=== PATIENT | male | born 1990 | race Caucasian/White ===

== ENCOUNTER 2017-08-28 02:08 | Emergency (ER) | payer MEDICAID, SELFPAY | END 2017-08-28 03:05 | disposition left against medical advice (07) | PROVIDERS: Emergency Provider Emergency Medicine; Family Provider Family Medicine; Visit Provider Emergency Medicine | DX: Z53.29 Procedure and treatment not carried out because of patient's decision for other reasons (principal); R07.9 Chest pain, unspecified | CPT/HCPCS: 80053; 82550; 82553; 84484; 85025; 93005; 93041; 99211; 99284 ==

== ENCOUNTER 2025-07-09 15:41 | Outpatient (CLI) | payer BC, SELFPAY ==
--- OUTSIDE RECORDS SUMMARY | 2025-02-17 05:00 | XMS_ITS ---
Author Organization [facility] Address [address] [place] [address] Phone [phone] Care Team Providers Care Aboriginal Liaison Officer Name Role Phone Sintia Palma Margarito [phone] Migration, Provider Unavailable Unavailable REASON FOR VISIT TelEnc Encounters Encounter Location Date Provider Diagnosis [address] [address] 02/17/2025 Provider Migration Plan Of Treatment No Information Progress Notes * JANEE DE SANTIAGOOB:1990 (35 yo M)Acc No.[id number]:02/17/2025 Patient: Tima SHAFFER YAJAIRA :1990 A ge:34 Y S ex:Male Address:[facility] [address], [address] [place], [place], [address] Subjective: * Chief Complaints: * T elEnc * * Date:
--- OUTSIDE RECORDS SUMMARY | 2025-02-24 12:30 | XMS_ITS ---
Author Organization [facility] Address [address] [place] [address] Phone [phone] Care Team Providers Care Monitor Tech Name Role Phone Sintia Palma [phone] Results Component Value Reference Range Notes DRUG SCREEN, URINE Reviewed date:02/24/2025 12:00:00 AM Interpretation: Performing Lab: Notes/Report: Amphetamines: negative Barbiturates: negative Benzodiazepines: negative Buprenoprhine positive Cannabinoids: positive Cocaine: negative Ethanol: negative Fentanyl negative MDMA negative Methadone negative Opiates: negative Oxycodone negative Vital Signs Temperature 97.9 degrees Fahrenheit 02/25/20 25 Blood pressure systolic 127 mm Hg 02/25/20 25 Blood pressure diastolic 71 mm Hg 025 Height 66.00 in 02/24/2025 Weight 207.00 lbs 02/24/2025 BMI 33.4 kg/m2 02/24/2025 Oximetry 99 % 02/24/2025 Height-cm 167.64 cm 02/24/2025 Weight-kg 93.89 kg 02/24/2025 Encounters Encounter Location Date Provider Diagnosis [facility] [address] [place] [address] 02/24/2025 Sintia Palma Other residential (current) drug therapy Z79.899 and Encounter for issue of repeat prescription Z76.0 Assessments Encounter Date Diagnosis (ICD Code) Assessment Notes Treatment Notes Treatment Clinical Notes Section Notes 02/24/2025 Other residential (current) drug therapy (ICD-10 - Z79.899) 02/24/2025 Encounter for issue of repeat prescription (ICD-10 - Z76.0) Plan Of Treatment No Information Progress Notes * JANEE DE SANTIAGOOB:1990 (35 yo M)Acc No.[id number]:02/24/2025 Progress Notes Patient: YAJAIRA JORDAN Provider: Hermelindo Palma APRN, PhD :1990 A ge:34 Y S ex:Male Date:02/24/2025 Address:[address] [place] [address], [address] [place], [id number] Objective: * Vitals: B P: 127/71 mm Hg, Temp: 97.9 F, Oxygen sat %: 99 %, Wt: 207.00 lbs, Wt-k.89 kg, Ht: 66.00 in, Ht-cm: 167.64 cm, BMI: 33.4 Index. Assessment: * Assessment: 1. E ncounter for issue of repeat prescription - Z76.0 2 . 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
--- OUTSIDE RECORDS SUMMARY | 2025-03-10 12:30 | XMS_ITS ---
Author Organization [facility] Address [address] [place] [address] Phone [phone] Care Team Providers Care Pension Fund Manager Name Role Phone Sintia Palma Unavailable [phone] Vital Signs Temperature 97.8 degrees Fahrenheit 03/10/20 25 Blood pressure systolic 145 mm Hg 03/10/20 25 Blood pressure diastolic 76 mm Hg 025 Height 66.00 in 03/10/2025 Weight 202.60 lbs 03/10/2025 BMI 32.7 kg/m2 03/10/2025 Oximetry 99 % 03/10/2025 Height-cm 167.64 cm 03/10/2025 Weight-kg 91.90 kg 03/10/2025 Encounters Encounter Location Date Provider Diagnosis [facility] [address] [place] [address] 03/10/2025 Sintia Palma Other jail (current) drug therapy Z79.899 ; Essential (primary) hypertension I10 and Encounter for issue of repeat prescription Z76.0 Assessments Encounter Date Diagnosis (ICD Code) Assessment Notes Treatment Notes Treatment Clinical Notes Section Notes 03/10/2025 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 (ICD-10 - Z79.899) 03/10/2025 Essential (primary) hypertension (ICD-10 - I10) 03/10/2025 Encounter for issue of repeat prescription (ICD-10 - Z76.0) Plan Of Treatment No Information Progress Notes * JANEE DE SANTIAGOOB:1990 (35 yo M)Acc No.[id number]:03/10/2025 Progress Notes Patient: YAJAIRA JORDAN Provider: Hermelindo Palma APRN PhD :1990 A ge:34 Y S ex:Male Date:03/10/2025 Address:[address] [place], [place] [address] , [address] [facility], [id number] Objective: * Vitals: B P: 145/76 mm Hg, Temp: 97.8 F, Oxygen sat %: 99 %, Wt: 202.60 lbs, Wt-k.90 kg, Ht: 66.00 in, Ht-cm: 167.64 cm, BMI: 32.7 Index. Assessment: * Assessment: 1. E ssential (primary) hypertension - I10 2 . E ncounter for issue of repeat prescription - Z76.0 3 . O ther jail (current) drug therapy - Z79.899? * Electronic signature of TRESA Solomon on 07/09/2025 at 03:45 PM EDT Sign off status: Pending * Provider: Hermelindo Palma APRN, PhD Date: 0 03/10/2025 Generated for Terri mcguire/Lisa/eTransmitting on: 1 03:45 PM EDT
--- OUTSIDE RECORDS SUMMARY | 2025-03-24 05:00 | XMS_ITS ---
Author Organization [facility] Address [address] [place] [address] Phone [phone] Care Team Providers Care Motion Study Technician Name Role Phone Sintia Palma Margarito [phone] Migration, Provider Unavailable Unavailable REASON FOR VISIT TelEnc Encounters Encounter Location Date Provider Diagnosis [address] [address] 03/24/2025 Provider Migration Plan Of Treatment No Information Progress Notes * JANEE DE SANTIAGOOB:1990 (35 yo M)Acc No.[id number]:03/24/2025 Patient: Tima SHAFFER YAJAIRA :1990 A ge:34 Y S ex:Male Address:[facility] [address], [address] [place], [address] Subjective: * Chief Complaints: * T elEnc * * Date:
--- OUTSIDE RECORDS SUMMARY | 2025-03-25 13:00 | XMS_ITS ---
Author Organization [facility] Address [address] [place] [address] Phone [phone] Care Team Providers Care Internal Controls Specialist Name Role Phone Sintia Palma [phone] Vital Signs Height 66.00 in 03/25/2025 Height-cm 167.64 cm 03/25/2025 Encounters Encounter Location Date Provider Diagnosis [facility] [address] [place] [address] 03/25/2025 Sintia Palma Encounter for issue of repeat prescription Z76.0 and Other [facility] (current) drug therapy Z79.899 Assessments Encounter Date Diagnosis (ICD Code) Assessment Notes Treatment Notes Treatment Clinical Notes Section Notes 03/25/2025 Encounter for issue of repeat prescription (ICD-10 - Z76.0) 03/25/2025 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 Assessment: * Assessment: 1. E ncounter for issue of repeat prescription - Z76.0 2 . 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
--- OUTSIDE RECORDS SUMMARY | 2025-04-10 05:00 | XMS_ITS ---
Author Organization [facility] Address [address] [place] [address] Phone [phone] Care Team Providers Care In House Counsel Name Role Phone PalmaSintia Unavailable [phone] Migration, Provider Unavailable Unavailable REASON FOR VISIT EMR-Mateusz Encounters Encounter Location Date Provider Diagnosis [address] [address] 04/10/2025 Provider Migration Plan Of Treatment No Information Progress Notes * JANEE DE SANTIAGOOB:1990 (35 yo M)Acc No.[id number]:04/10/2025 Patient: Tima SHAFFERYAJAIRA :1990 A ge:34 Y S ex:Male Address:[facility] [address], [address] , [place], [address] Subjective: * Chief Complaints: * E MR-Mateusz * * Date:
--- OUTSIDE RECORDS SUMMARY | 2025-04-11 05:00 | XMS_ITS ---
Author Organization [facility] Address [address] [place] [address] Phone [phone] Care Team Providers Care Tool Design Draftsperson Name Role Phone Sintia Palma Unavailable [phone] Migration, Provider Unavailable Unavailable REASON FOR VISIT EMR-Mateusz Medications Medication SIG (Take, Route, Frequency, Duration) Notes Start Date End Date Status prednisoLONE Acetate 1 % Suspension Ophthalmic 03/25/2025 Active Clobetasol Propionate 0.05% Cream External 03/25/2025 Active Polyethylene Glycol 3350 Powder Oral 03/25/2025 Active Triamcinolone Acetonide 0.1% Cream External 03/25/2025 Active Diclofenac Sodium 75 MG Tablet Delayed Release Oral 03/25/2025 Active Colace 100 MG Capsule Oral 03/25/2025 Active Ondansetron 4 MG Tablet Disintegrating Oral 03/25/2025 Active Latanoprost 0.005 % Solution Ophthalmic 03/25/2025 Active BUPRENORPHINE-NALOXONE 8-2 mg FILM, MEDICATED (EA) SUBLINGUAL *Reorder from Yesware for eRx and Interaction Alerts* 03/25/2025 Active Docusate Sodium 100 MG Capsule Oral 03/25/2025 Active MiraLax Powder Oral *Pick strength-form from [employer] for eRX* 03/25/2025 Active Atenolol 50 MG Tablet Oral 03/25/2025 Active Social History Social History Additional Details Category Social Info Options Details Migrated Social History Migrated Social History Alcohol Intake: None 10/14/2020,Tobacco Years: Current every day smoker 08/24/2020,Smoking Status: 20 09/26/2021 Encounters Encounter Location Date Provider Diagnosis [facility] [address] [place] [address] 04/11/2025 Provider Migration Plan Of Treatment No Information Progress Notes * JANEE DE SANTIAGOOB:1990 (35 yo M)Acc No.[id number]:04/11/2025 Patient: YAJAIRA JORDAN :1990 A ge:34 Y S ex:Male Address:[address] [place] [address], [address] [address] Subjective: * Chief Complaints: * E MR-Mateusz * Medical History: Problems: Acute right otitis media Benign essential hypertension Chronic hepatitis C Constipation Contact dermatitis Dermatophytosis Dysphagia Erectile dysfunction Excessive cerumen in ear canal Fatigue Gastroesophageal reflux disease Generalized anxiety disorder Health maintenance alteration Infection of skin and/or subcutaneous tissue Irregular heart beat Long-term drug therapy Low back pain Medical examination for suspected condition Muscle pain Muscle spasm of cervical muscle of neck Muscle tension pain Nausea Neck pain Numbness of hand Otalgia Pain in left foot Pain of ear Pain of left shoulder joint Pain of shoulder region Pruritic rash Renewal of prescription Screening for cardiovascular system disease Seasonal allergy Spasm Tinea pedis Unprotected sexual intercourse Venereal disease screening Viral screening * Surgical History: Arthroscopy ([id number]) * Family History: F ather: Hypertensive disorder . U nspecified Relation: Myocardial infarction . M other: Heart disease , Lung mass , Diabetes mellitus , Hypertensive disorder , Radial tunnel syndrome . Maternal Grandfather: Myocardial infarction , Diabetes mellitus . B rother: Hypertensive disorder . * Social History: M igrated Social History: M igrated Social History: Alcohol Intake: None 10/14/2020,Tobacco Years: Current every day smoker 08/24/2020,Smoking Status: 20 09/26/2021. * Medications: T akingTriamcinolone Acetonide 0.1% Cream External Atenolol 50 MG Tablet Oral Docusate Sodium 100 MG Capsule Oral Colace 100 MG Capsule Oral MiraLax Powder Oral , Notes to Pharmacist: *Pick strength-form from [employer] for eRX*BUPRENORPHINE-NALOXONE 8-2 mg FILM, MEDICATED (EA) SUBLINGUAL , Notes to Pharmacist: *Reorder from [employer] for eRx and Interaction Alerts*Clobetasol Propionate 0.05% Cream External Polyethylene Glycol 3350 Powder Oral Diclofenac Sodium 75 MG Tablet Delayed Release Oral Latanoprost 0.005 % Solution Ophthalmic Ondansetron 4 MG Tablet Disintegrating Oral prednisoLONE Acetate 1 % Suspension Ophthalmic Taking Triamcinolone Acetonide 0.1% Cream External Taking Atenolol 50 MG Tablet Oral Taking Docusate Sodium 100 MG Capsule Oral Taking Colace 100 MG Capsule Oral Taking MiraLax Powder Oral , Notes to Pharmacist: *Pick strength-form from [facility] for eRX*Taking BUPRENORPHINE-NALOXONE 8-2 mg FILM, MEDICATED (EA) SUBLINGUAL , Notes to Pharmacist: *Reorder from [facility] for eRx and Interaction Alerts*Taking Clobetasol Propionate 0.05% Cream External Taking Polyethylene Glycol 3350 Powder Oral Taking Diclofenac Sodium 75 MG Tablet Delayed Release Oral Taking Latanoprost 0.005 % Solution Ophthalmic Taking Ondansetron 4 MG Tablet Disintegrating Oral Taking prednisoLONE Acetate 1 % Suspension Ophthalmic * * Date:
--- OUTSIDE RECORDS SUMMARY | 2025-04-21 12:00 | XMS_ITS ---
Author Organization [facility] Address [address] [place] [address] Phone [phone] Care Team Providers Care Chief Steward/Stewardess Name Role Phone Sintia Palma Unavailable [phone] Encounters Encounter Location Date Provider Diagnosis [address] [address] 04/21/2025 Sintia Palma Plan Of Treatment No Information Progress Notes * JANEE DE SANTIAGOOB:1990 (35 yo M)Acc No.[id number]:04/21/2025 Progress Notes Patient: YAJAIRA JORDAN Provider: Hermelindo Palma APRN, PhD :1990 A ge:34 Y S ex:Male Date:04/21/2025 Address:[address], [address] , [place], [id number] * Electronic signature of TRESA Solomon on 07/09/2025 at 03:45 PM EDT Sign off status: Pending * Provider: Hermelindo Palma APRN, PhD Date: 0 04/21/2025 Generated for Printi ng/Faxing/eTransmitting on: 1 03:45 PM EDT
--- OUTSIDE RECORDS SUMMARY | 2025-06-16 11:30 | XMS_ITS ---
Author Organization [facility] Address [address] [place] [address] Phone [phone] Care Team Providers Care Drapery Hanger Name Role Phone Sintia Palma Unavailable [phone] REASON FOR VISIT Mat/Confirmation/Med refill Encounters Encounter Location Date Provider Diagnosis [address] [address] 06/16/2025 Sintia Palma Plan Of Treatment No Information Progress Notes * JANEE DE SANTIAGOOB:1990 (35 yo M)Acc No.[id number]:06/16/2025 Patient: YAJAIRA JORDAN Provider: Hermelindo Palma APRN, PhD :1990 A ge:35 Y S ex:Male Date:06/16/2025 Address:[facility] [address] , [address] , [place], [place] Subjective: * Chief Complaints: * M at/Confirmation/Med refill * Electronic signature of TRESA Solomon on 07/09/2025 at 03:46 PM EDT Sign off status: Pending * Provider: Hermelindo Palma APRN, PhD Date: Generated for Terri mcguire/Lisa/eTransmitting on: 03:46 PM EDT
--- OUTSIDE RECORDS SUMMARY | 2025-06-30 12:30 | XMS_ITS ---
Author Organization [facility] Address [address] [place] [address] Phone [phone] Care Team Providers Care Methods Examiner Name Role Phone Sintia Palma Unavailable [phone] REASON FOR VISIT mat/house/med refill Encounters Encounter Location Date Provider Diagnosis [address] [address] 06/30/2025 Sintia Palma Plan Of Treatment No Information Progress Notes * JANEE DE SANTIAGOOB:1990 (35 yo M)Acc No.[id number]:06/30/2025 Patient: YAJAIRA JORDAN Provider: Hermelindo Palma APRN, PhD :1990 A ge:35 Y S ex:Male Date:06/30/2025 Address:[facility] [address] , [address] , [place], [place] Subjective: * Chief Complaints: * M at/house/med refill * Electronic signature of TRESA Solomon on 07/09/2025 at 03:45 PM EDT Sign off status: Pending * Provider: Hermelindo Palma APRN, PhD Date: Generated for Terri mcguire/Lisa/eTgloriasmitting on: 03:45 PM EDT
--- NOTE | 2025-07-09 | US_ITS ---
FINAL REPORT TECHNIQUE: Ultrasound images of the abdomen were obtained. CLINICAL HISTORY: ABD PAIN COMPARISON: None FINDINGS: ABDOMINAL ULTRASOUND COMPLETE: The liver is normal in size and echogenicity without focal abnormality. Sludge is noted in the gallbladder. The common duct is normal. The right kidney measures 10.8 cm in length and is normal in echogenicity without hydronephrosis. The left kidney measures 9.5 cm in length and is normal in echogenicity without hydronephrosis. The spleen is unremarkable. The pancreas is obscured by overlying bowel gas. The visualized portions of the aorta and the IVC are normal. The vena cava is unremarkable. IMPRESSION: Sludge in the gallbladder. Reviewed, Interpreted and Dictated by Steven Gaxiola MD Transcribed by Kathy Sosa Authenticated and . [facility]
--- OUTSIDE RECORDS SUMMARY | 2025-07-09 15:44 | XMS_ITS | Patient Health Record ---
Author Organization [facility] Address [address] [place] [address] Phone [phone] Care Team Providers Care Dairy Management Specialist Name Role Phone Sintia Palma Unavailable [phone] LewisRosi che Unavailable [phone] Migration, Provider Unavailable Unavailable Results Component Value Reference Range Notes DRUG SCREEN, URINE Reviewed date:07/15/2024 12:00:00 AM Interpretation: Performing Lab: Notes/Report: Amphetamines: negative Barbiturates: negative Benzodiazepines: negative Buprenoprhine positive Cannabinoids: negative Cocaine: negative Ethanol: negative Fentanyl negative MDMA negative Methadone negative Opiates: negative Oxycodone negative DRUG SCREEN, URINE Reviewed date:08/12/2024 12:00:00 AM Interpretation: Performing Lab: Notes/Report: DRUG SCREEN, URINE Reviewed date:09/29/2024 12:00:00 AM Interpretation: Performing Lab: Notes/Report: Amphetamines: negative Barbiturates: negative Benzodiazepines: negative Buprenoprhine positive Cannabinoids: positive Cocaine: negative Ethanol: negative Fentanyl negative MDMA negative Methadone negative Opiates: negative Oxycodone negative DRUG SCREEN, URINE Reviewed date:09/29/2024 12:00:00 AM Interpretation: Performing Lab: Notes/Report: CMP, SERUM OR PLASMA Reviewed date:11/04/2024 12:00:00 AM Interpretation: Performing Lab: Notes/Report: DRUG SCREEN, URINE Reviewed date:11/04/2024 12:00:00 AM Interpretation: Performing Lab: Notes/Report: DRUG SCREEN, URINE Reviewed date:12/30/2024 12:00:00 AM Interpretation: Performing Lab: Notes/Report: Amphetamines: negative Barbiturates: negative Benzodiazepines: negative Buprenoprhine positive Cannabinoids: positive Cocaine: negative Ethanol: negative Fentanyl negative MDMA negative Methadone negative Opiates: negative Oxycodone negative DRUG SCREEN, URINE Reviewed date:01/13/2025 12:00:00 AM Interpretation: Performing Lab: Notes/Report: DRUG SCREEN, URINE Reviewed date:02/24/2025 12:00:00 AM Interpretation: Performing Lab: Notes/Report: Amphetamines: negative Barbiturates: negative Benzodiazepines: negative Buprenoprhine positive Cannabinoids: positive Cocaine: negative Ethanol: negative Fentanyl negative MDMA negative Methadone negative Opiates: negative Oxycodone negative Comp. Metabolic Panel (14) Reviewed date:05/18/2025 05:04:02 PM Interpretation: Performing Lab: Notes/Report: Urine toxicology Reviewed date:05/18/2025 05:01:55 PM Interpretation: Performing Lab: Notes/Report: Testosterone,Free and Total Reviewed date:05/20/2025 06:10:27 PM Interpretation: Performing Lab: Notes/Report: Urine toxicology (Not yet re viewed by provider) Interpretation: Performing Lab: Notes/Report: Reason For Referral No Information Medications Medication SIG (Take, Route, Frequency, Duration) Notes Start Date End Date Status Colace 100 MG Capsule Oral 03/25/2025 Active Ondansetron 4 MG Tablet Disintegrating Oral 03/25/2025 Active Latanoprost 0.005 % Solution Ophthalmic 03/25/2025 Active prednisoLONE Acetate 1 % Suspension Ophthalmic 03/25/2025 Active MiraLax Powder Oral *Pick strength-form from [employer] for eRX* 03/25/2025 Active BUPRENORPHINE-NALOXONE 8-2 mg FILM, MEDICATED (EA) SUBLINGUAL *Reorder from [employer] for eRx and Interaction Alerts* 03/25/2025 Active Clobetasol Propionate 0.05% Cream External 03/25/2025 Active Polyethylene Glycol 3350 Powder Oral 03/25/2025 Active Triamcinolone Acetonide 0.1% Cream External 03/25/2025 Active Docusate Sodium 100 MG Capsule Oral 03/25/2025 Active Atenolol 50 MG Tablet Oral 03/25/2025 Active Diclofenac Sodium 75 MG Tablet Delayed Release Oral 03/25/2025 Active Social History Social History Additional Details Category Social Info Options Details Migrated Social History Migrated Social History Alcohol Intake: None 10/14/2020,Tobacco Years: Current every day smoker 08/24/2020,Smoking Status: 20 09/26/2021 Problems Problem Type SNOMED Code ICD Code Onset Dates Problem Status W/U Status Risk Notes Problem Chronic hepatitis C (035081853) Chronic viral hepatitis C (B18.2) 08/07/20 21 Active confirmed Problem Tinea pedis (3940202) Tinea pedis (B35.3) 08/21/20 22 Active confirmed Problem Dermatophytosis (58576756) Dermatophytosis, unspecified (B35.9) 03/05/20 23 Active confirmed Problem Opioid dependence (40252664) Opioid dependence, uncomplicated (F11.20) 10/14/19 21 Active confirmed Problem Generalized anxiety disorder (86691488) Generalized anxiety disorder (F41.1) 06/20/20 22 Active confirmed Problem Male erectile disorder (373386948) Male erectile disorder (F52.21) 11/14/19 23 Active confirmed Problem Sleep disorder (59218793) Sleep disorder, unspecified (G47.9) 09/14/19 21 Active confirmed Problem Glaucoma (41918843) Unspecified glaucoma (H40.9) 11/12/19 24 Active confirmed Problem Impacted cerumen (92095022) Impacted cerumen, bilateral (H61.23) 07/18/20 22 Active confirmed Problem Otitis media (93960060) Otitis media, unspecified, right ear (H66.91) 09/29/19 25 Active confirmed Problem Otalgia of right ear (finding) (9585520872) Otalgia, right ear (H92.01) 02/13/20 22 Active confirmed Problem Pain of ear (finding) (836339767) Otalgia, unspecified ear (H92.09) 11/06/19 24 Active confirmed Problem Essential hypertension (90973016) Essential (primary) hypertension (I10) 03/10/20 25 Active confirmed Problem Acute upper respiratory infection (60305068) Acute upper respiratory infection, unspecified (J06.9) 12/17/19 25 Active confirmed Problem Seasonal allergic rhinitis (723672940) Other seasonal allergic rhinitis (J30.2) 01/01/20 24 Active confirmed Problem Gastro-esophageal reflux disease without esophagitis (240045225) Gastro-esophageal reflux disease without esophagitis (K21.9) 10/09/19 24 Active confirmed Problem Constipation (28133535) Constipation, unspecified (K59.00) 11/04/19 25 Active confirmed Problem Localized infection of skin AND/OR subcutaneous tissue (526925572) Local infection of the skin and subcutaneous tissue, unspecified (L08.9) 07/18/20 22 Active confirmed Problem Contact dermatitis (32640313) Unspecified contact dermatitis, unspecified cause (L25.9) 12/17/19 25 Active confirmed Problem Prurigo (20604577) Other prurigo (L28.2) 12/04/19 24 Active confirmed Problem Dermatitis (821451607) Dermatitis, unspecified (L30.9) 06/05/20 22 Active confirmed Problem Shoulder joint pain (840646252) Pain in left shoulder (M25.512) 11/20/19 24 Active confirmed Problem Shoulder joint pain (087041757) Pain in unspecified shoulder (M25.519) 10/29/19 24 Active confirmed Problem Cervicalgia (55378171) Cervicalgia (M54.2) 06/17/20 24 Active confirmed Problem Spasm (28529793) Other muscle sp asm (M62.838) 08/07/20 21 Active confirmed Problem Pain in right foot (695204294123185) Pain in right foot (M79.671) 02/28/20 22 Active confirmed Problem Pain in left foot (336680903970790) Pain in left foot (M79.672) 10/21/19 21 Active confirmed Problem Pain in limb (41807892) Pain in right toe(s) (M79.674) 02/26/20 24 Active confirmed Problem Pain in limb (28197593) Pain in left toe(s) (M79.675) 02/26/20 24 Active confirmed Problem Abnormal heart beat (821126144) Other abnormalities of heart beat (R00.8) 03/05/20 22 Active confirmed Problem Nausea (526327470) Nausea (R11.0) 0 25 Active confirmed Problem Nausea and vomiting (53530413) Nausea with vomiting, unspecified (R11.2) 04/28/20 22 Active confirmed Problem Dysphagia (07597299) Dysphagia, unspecified (R13.10) 03/27/20 23 Active confirmed Problem Anesthesia of skin (967871604) Anesthesia of skin (R20.0) 12/08/19 21 Active confirmed Problem Spasm (64800335) Cramp and spasm (R25.2) 11/04/19 25 Active confirmed Problem Disorder of musculoskeletal system (050961) Other symptoms and signs involving the musculoskeletal system (R29.898) 10/14/19 21 Active confirmed Problem Fatigue (91464292) Other fatigue (R53.83) 08/21/20 22 Active confirmed Problem History of suspected exposure to biological agent (72578297236513) Encounter for observation for suspected exposure to other biological agents ruled out (Z03.818) 09/26/19 22 Active confirmed Problem Sexually transmitted infectious disease (1109829) Encounter for screening for infections with a predominantly sexual mode of transmission (Z11.3) 10/09/19 24 Active confirmed Problem Infection screening (677033282) Encounter for screening for other infectious and parasitic diseases (Z11.8) 03/19/20 23 Active confirmed Problem Screening for cardiovascular system disease (655894254) Encounter for screening for cardiovascular disorders (Z13.6) 10/09/19 24 Active confirmed Problem Screening procedure (84033263) Encounter for screening, unspecified (Z13.9) 10/09/19 24 Active confirmed Problem High risk heterosexual behavior (812313420216391) High risk heterosexual behavior (Z72.51) 01/12/20 21 Active confirmed Problem Repeated prescription (330827109) Encounter for issue of repeat prescription (Z76.0) 03/25/20 25 Active confirmed Problem Health status (432588585) Other specified health status (Z78.9) 03/19/20 23 Active confirmed Problem Long-term current use of drug therapy (820080270) Other supervisor long goods (current) drug therapy (Z79.899) 03/25/20 25 Active confirmed Problem Drug-induced constipation (56681118) Drug induced constipation (K59.03) 12/17/19 21 Active confirmed Problem Muscle pain (63096221) Myalgia, unspecified site (M79.10) 04/01/20 22 Active confirmed Problem Encounter for screening for COVID-19 (Z11.52) 09/26/19 22 Active confirmed Problem Low back pain (830267478) Low back pain, unspecified (M54.50) 11/25/19 25 Active confirmed Vital Signs Temperature 97.8 degrees Fahrenheit 03/10/2025 Height-cm 167.64 cm 03/25/2025 Oximetry 99 % 03/10/2025 Blood pressure diastolic 76 mm Hg 03/10/2025 Weight-kg 91.90 kg 03/10/2025 Height 66.00 in 03/25/2025 Blood pressure systolic 145 mm Hg 03/10/2025 Weight 202.60 lbs 03/10/2025 BMI 32.7 kg/m2 03/10/2025 Encounters Encounter Location Date Provider Diagnosis [address] [address] 07/15/2024 Rosi Saucedo Encounter for issue of repeat prescription Z76.0 and Other supervisor long goods (current) drug therapy Z79.[address] [address] 07/29/2024 Rosi Saucedo Encounter for issue of repeat prescription Z76.0 ; Constipation, unspecified K59.00 and Other assisted (current) drug therapy Z79.[address] [address] 08/12/2024 Sintia Palma Encounter for issue of repeat prescription Z76.0 and Other supervisor long goods (current) drug therapy Z79.[address] [address] 08/26/2024 Sintia Palma Other supervisor long goods (current) drug therapy Z79.899 and Encounter for issue of repeat prescription Z76.[address] [address] 09/15/2024 Sintia Palma Encounter for issue of repeat prescription Z76.0 and Other supervisor long goods (current) drug therapy Z79.[address] [address] 09/29/2024 Sintia Palma Low back pain, unspecified M54.50 ; Otitis media, unspecified, right ear H66.91 ; Encounter for issue of repeat prescription Z76.0 and Other supervisor long goods (current) drug therapy Z79.[address] [address] 10/13/2024 Sintia Palma Nausea R11.0 ; Other assisted (current) drug therapy Z79.899 and Encounter for issue of repeat prescription Z76.0 [facility], [address] [address] 10/21/2024 Sintia Palma Other assisted (current) drug therapy Z79.899 [facility], [address] [address] 11/04/2024 Sintia Palma Other supervisor long goods (current) drug therapy Z79.899 ; Cramp and spasm R25.2 ; Constipation, unspecified K59.00 and Encounter for issue of repeat prescription Z76.[address] [address] 11/24/2024 Sintia Palma Encounter for issue of repeat prescription Z76.0 ; Unspecified contact dermatitis, unspecified cause L25.9 ; Low back pain, unspecified M54.50 ; Other supervisor long goods (current) drug therapy Z79.899 and Essential (primary) hypertension I10 [facility], [address] [address] 12/16/2024 Sintia Palma Encounter for issue of repeat prescription Z76.0 ; Other supervisor long goods (current) drug therapy Z79.899 ; Acute upper respiratory infection, unspecified J06.9 and Unspecified contact dermatitis, unspecified cause L25.9 [facility], [address] [address] 12/30/2024 Sintia Palma Encounter for issue of repeat prescription Z76.0 and Other supervisor long goods (current) drug therapy Z79.899 [facility], [address] [address] 01/13/2025 Sintia Palma Other assisted (current) drug therapy Z79.899 and Encounter for issue of repeat prescription Z76.[address] [address] 01/27/2025 Rosi Saucedo Other assisted (current) drug therapy Z79.899 and Encounter for issue of repeat prescription Z76.[address] [address] 02/10/2025 Sintia Palma Other supervisor long goods (current) drug therapy Z79.899 and Encounter for issue of repeat prescription Z76.0 [facility], [address] [address] 02/24/2025 Sintia Palma Other assisted (current) drug therapy Z79.899 and Encounter for issue of repeat prescription Z76.0 [facility], [address] [address] 03/10/2025 Sintia Palma Other assisted (current) drug therapy Z79.899 ; Essential (primary) hypertension I10 and Encounter for issue of repeat prescription Z76.0 [facility], [address] [address] 03/25/2025 Sintia Palma Encounter for issue of repeat prescription Z76.0 and Other supervisor long goods (current) drug therapy Z79.899 [facility], [address] [address] 04/21/2025 Sintia Palma [facility], [address] [address] 06/16/2025 Sintia Palma [facility], [address] [address] 06/30/2025 Sintia Palma [facility], [address] [address] 08/14/2024 Provider Migration [facility], [address] [address] 09/18/2024 Provider Migration [facility], [address] [address] 12/23/2024 Provider Migration [facility], [address] [address] 01/06/2025 Provider Migration [facility], [address] [address] 01/20/2025 Provider Migration [facility], [address] [address] 02/03/2025 Provider Migration [facility], [address] [address] 02/17/2025 Provider Migration [facility] [address] [place] [address] 03/24/2025 Provider [facility] [address] [place] [address] 04/10/2025 Provider Migration [facility] [address] [place] [address] 04/11/2025 Provider Migration Assessments Encounter Date Diagnosis (ICD Code) Assessment Notes Treatment Notes Treatment Clinical Notes Section Notes 07/15/2024 Encounter for issue of repeat prescription (ICD-10 - Z76.0) 07/15/2024 Other assisted (current) drug therapy (ICD-10 - Z79.899) 07/29/2024 Constipation, unspecified (ICD-10 - K59.00) 07/29/2024 Encounter for issue of repeat prescription (ICD-10 - Z76.0) 07/29/2024 Other supervisor long goods (current) drug therapy (ICD-10 - Z79.899) 08/12/2024 Encounter for issue of repeat prescription (ICD-10 - Z76.0) 08/12/2024 Other assisted (current) drug therapy (ICD-10 - Z79.899) 08/26/2024 Encounter for issue of repeat prescription (ICD-10 - Z76.0) 08/26/2024 Other assisted (current) drug therapy (ICD-10 - Z79.899) 09/15/2024 Encounter for issue of repeat prescription (ICD-10 - Z76.0) 09/15/2024 Other supervisor long goods (current) drug therapy (ICD-10 - Z79.899) 09/29/2024 Otitis media, unspecified, right ear (ICD-10 - H66.91) 09/29/2024 Encounter for issue of repeat prescription (ICD-10 - Z76.0) 09/29/2024 Other assisted (current) drug therapy (ICD-10 - Z79.899) 09/29/2024 Low back pain, unspecified (ICD-10 - M54.50) 10/13/2024 Nausea (ICD-10 - R11.0) 10/13/2024 Encounter for issue of repeat prescription (ICD-10 - Z76.0) 10/13/2024 Other supervisor long goods (current) drug therapy (ICD-10 - Z79.899) 10/21/2024 Other supervisor long goods (current) drug therapy (ICD-10 - Z79.899) 11/04/2024 Constipation, unspecified (ICD-10 - K59.00) 11/04/2024 Cramp and spasm (ICD-10 - R25.2) 11/04/2024 Encounter for issue of repeat prescription (ICD-10 - Z76.0) 11/04/2024 Other assisted (current) drug therapy (ICD-10 - Z79.899) 11/24/2024 Essential (primary) hypertension (ICD-10 - I10) 11/24/2024 Unspecified contact dermatitis, unspecified cause (ICD-10 - L25.9) 11/24/2024 Encounter for issue of repeat prescription (ICD-10 - Z76.0) 11/24/2024 Other supervisor long goods (current) drug therapy (ICD-10 - Z79.899) 11/24/2024 Low back pain, unspecified (ICD-10 - M54.50) 12/16/2024 Acute upper respiratory infection, unspecified (ICD-10 - J06.9) 12/16/2024 Unspecified contact dermatitis, unspecified cause (ICD-10 - L25.9) 12/16/2024 Encounter for issue of repeat prescription (ICD-10 - Z76.0) 12/16/2024 Other assisted (current) drug therapy (ICD-10 - Z79.899) 12/30/2024 Encounter for issue of repeat prescription (ICD-10 - Z76.0) 12/30/2024 Other supervisor long goods (current) drug therapy (ICD-10 - Z79.899) 01/13/2025 Encounter for issue of repeat prescription (ICD-10 - Z76.0) 01/13/2025 Other supervisor long goods (current) drug therapy (ICD-10 - Z79.899) 01/27/2025 Encounter for issue of repeat prescription (ICD-10 - Z76.0) 01/27/2025 Other supervisor long goods (current) drug therapy (ICD-10 - Z79.899) 02/10/2025 Encounter for issue of repeat prescription (ICD-10 - Z76.0) 02/10/2025 Other assisted (current) drug therapy (ICD-10 - Z79.899) 02/24/2025 Encounter for issue of repeat prescription (ICD-10 - Z76.0) 02/24/2025 Other assisted (current) drug therapy (ICD-10 - Z79.899) 03/10/2025 Essential (primary) hypertension (ICD-10 - I10) 03/10/2025 Encounter for issue of repeat prescription (ICD-10 - Z76.0) 03/10/2025 Other assisted (current) drug therapy (ICD-10 - Z79.899) 03/25/2025 Encounter for issue of repeat prescription (ICD-10 - Z76.0) 03/25/2025 Other assisted (current) drug therapy (ICD-10 - Z79.899) Plan Of Treatment Pending Test Test Name Order Date Urine toxicology 06/04/2025 Insurance Providers Payer Name Payer Address Payer Phone Subscriber Number Group Number Insured Name Patient Relationship to Insured Coverage Start Date Coverage End Date [employer] (Ppo) [address] [place] [phone] [id number] YAJAIRA DE SANTIAGO Self - patient is the insured Medical (General) History Surgical History Surgery Date(Month/Year) Arthroscopy ([id number])
--- OUTSIDE RECORDS SUMMARY | 2025-07-09 15:44 | XMS_ITS | Data Portability ---
Author Organization [place] - [facility], [facility], [facility], [facility] Address [address] [place] [phone] Assessment Encounter Date Assessment Date Assessment LastModified by Organization Details LastModified Time 05/05/2025 05/05/2025 Patient presented for medication refill. Patient tolerating medication well at current dose without adverse effects. Refilled as below. Discussed plan with patient, who expressed understanding . Follow up as noted below. [email or web address] Not available 05/05/2025 17:33:27 05/19/2025 05/19/2025 Patient presented for medication refill. Patient tolerating medication well at current dose without adverse effects. Refilled as below. Discussed plan with patient, who expressed understanding . Follow up as noted below. Not available 05/19/2025 16:54:49 06/02/2025 06/02/2025 Patient presented for medication refill. Patient tolerating medication well at current dose without adverse effects. Refilled as below. Discussed plan with patient, who expressed understanding . Follow up as noted below. [email or web address] Not available 06/02/2025 18:02:36 06/30/2025 06/30/2025 Patient presented for medication refill. Patient tolerating medication well at current dose without adverse effects. Refilled as below. Discussed plan with patient, who expressed understanding . Follow up as noted below. Not available 06/30/2025 17:17:58 Plan of Treatment Reminders Order Date Submit Date Provider Last Modified By Organization Details Last Modified Time Details Appointments ESTABLISH ED PATIENT 30 2024 04:30P Nelda PALMA NP Not available Not available Not available Lab drug screen, urine 2024 025 [facility], [facility], [address] [place] [address], [phone], 06/30/2025 17:24:00 drug screen, urine [email or web address] [place] [address], [facility], [address] [place] [address], [phone], 06/02/2025 18:12:02 drug screen, urine 2024 025 [email or web address] [facility], [address] [place] [address], [id number], 06/02/2025 18:14:10 testoster one, total, serum 2024 025 [email or web address], [address] [place] [address], [id number], 05/19/2025 17:05:54 drug screen, urine 2024 025 [email or web address] [facility], [facility], [address] [place] [address], [phone], 05/19/2025 17:05:53 drug screen, urine [address], [facility], [address] [place] [address], [phone], 05/19/2025 17:05:53 CBC w/ auto diff 2024 025 [email or web address] [facility], [address] [place] [address], [id number], 05/05/2025 17:50:48 CMP, serum or plasma 2024 025 [email or web address] [facility], [address] [place] [address], [id number], 05/05/2025 17:50:48 lipase, serum or plasma 2024 025 [email or web address] [facility], [address] [place] [address], [id number], 05/05/2025 17:50:48 amylase, serum or plasma 2024 [email or web address] [facility], [address] [place] [address], [id number], 05/05/2025 17:50:48 testoster one, total, serum 2024 [email or web address] [id number] [facility], [address] [place] [address], [id number], 05/05/2025 17:50:48 drug screen, urine [address], [address] [place] [address], [phone], 05/05/2025 17:50:48 Referral None recorded. Procedures None recorded. Surgeries None recorded. Imaging US, abdomen, complete 2024 [facility] (Scheduling), [address], [place], [address], 06/09/2025 04:39:55 US, abdomen, complete 2024 [facility] (Scheduling), [address], [place], [address], 05/26/2025 04:12:44 Medication Orders ondansetr on 8 mg disintegr ating tablet 2024 [facility], [address] [place], [address], 06/30/2025 17:24:08 diclofena c sodium 75 mg tablet,de layed release 2024 [facility], [address] [place], [address], 06/30/2025 17:24:13 buprenorp astrid 8 mg-naloxo ne 2 mg sublingua l film 2024 025 [facility], [address], [id number], 06/30/2025 17:24:09 buprenorp astrid 8 mg-naloxo ne 2 mg sublingua l film 2024 025 [facility], [address], [address], 06/23/2025 05:01:45 buprenorp astrid 8 mg-naloxo ne 2 mg sublingua l film 2024 025 [facility], [address], [address], 06/23/2025 05:01:45 Colace 100 mg capsule 2024 025 [facility], [address], [address], 05/05/2025 17:51:40 buprenorp astrid 8 mg-naloxo ne 2 mg sublingua l film 2024 025 [facility], [address], [address], 06/23/2025 05:01:45 bupropion HCl XL 150 mg 24 hr tablet, extended release 2024 025 [facility], [address], [id number], 05/05/2025 17:51:40 Patient TargetsNo targets recorded. Patient Instructions Encounter Date Encounter Id Patient Instructions Last Modified By Organization Details Last Modified Time 05/05/2025 [id number] Discussed the benefits and risks of treatment with buprenorphine and alternatives to treatment, including Vivitrol. Discussed the risks or respiratory depression and associated with taking buprenorphine with alcohol, opioids, stimulants, or hypnotic sedatives, in particular benzodiazepines. Discussed the potential for precipitated withdrawal if used with an opioid. Patient signed contract and understands that the office will be collecting random drug screens and will be conducting pill counts. Consent on file. No new medical records. Attended 4 AA meetings over the past week. He has sponsor, Edgar Avila and talks or text daily and meets twice over the past week. Steps completed. 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 Counselor - Regi Wood, Appointment 06/07/2025 Plan: bup 16 mg/naloxone 4 mg SL daily, film. Continue counseling. Encouraged to work with sponsor and attend AA meetings in person or telehealth. Client committed to not using any Adderall in the future. Client reported that he only uses THC, has decreased amount Client has received written literature on bup/naloxone. at previous visit. [email or web address] Not available 05/05/2025 17:49:47 05/19/2025 [id number] Discussed the benefits and risks of treatment with buprenorphine and alternatives to treatment, including Vivitrol. Discussed the risks or respiratory depression and associated with taking buprenorphine with alcohol, opioids, stimulants, or hypnotic sedatives, in particular benzodiazepines. Discussed the potential for precipitated withdrawal if used with an opioid. Patient signed contract and understands that the office will be collecting random drug screens and will be conducting pill counts. Consent on file. No new medical records. Attended 4 AA meetings over the past week. He has sponsor, Edgar Avila and talks or text daily and meets twice over the past week. Steps completed. 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 Counselor - Regi Wood, Appointment 06/07/2025 Plan: bup 16 mg/naloxone 4 mg SL daily, film. Continue counseling. Encouraged to work with sponsor and attend AA meetings in person or telehealth. Client committed to not using any Adderall in the future. Client reported that he only uses THC, has decreased amount Client has received written literature on bup/naloxone. at previous visit. Not available 05/19/2025 16:48:12 06/02/2025 [id number] Discussed the benefits and risks of treatment with buprenorphine and alternatives to treatment, including Vivitrol. Discussed the risks or respiratory depression and associated with taking buprenorphine with alcohol, opioids, stimulants, or hypnotic sedatives, in particular benzodiazepines. Discussed the potential for precipitated withdrawal if used with an opioid. Patient signed contract and understands that the office will be collecting random drug screens and will be conducting pill counts. Consent on file. No new medical records. Attended 4 AA meetings over the past week. He has sponsor, Edgar Avila and talks or text daily and meets twice over the past 2 weeks. Steps completed. 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 Counselor - Regi Wood, Appointment 06/07/2025 Plan: bup 16 mg/naloxone 4 mg SL daily, film. Continue counseling. Encouraged to work with sponsor and attend AA meetings in person or telehealth. Client committed to not using any Adderall in the future. Client reported that he used THC with a friend. The THC was laced with amphetamine. Client did not know this and was told it was laced with MDMA after the patient's heart started to race. Typically client uses THC to control eye pressure. His opthamologist is aware of this use. Client has received written literature on bup/naloxone. at previous visit. Not available 06/02/2025 18:10:14 06/30/2025 [id number] Discussed the benefits and risks of treatment with buprenorphine and alternatives to treatment, including Vivitrol. Discussed the risks or respiratory depression and associated with taking buprenorphine with alcohol, opioids, stimulants, or hypnotic sedatives, in particular benzodiazepines. Discussed the potential for precipitated withdrawal if used with an opioid. Patient signed contract and understands that the office will be collecting random drug screens and will be conducting pill counts. Consent on file. No new medical records. Plan: bup 16 mg/naloxone 4 mg SL daily, film. Continue counseling. Encouraged to work with sponsor and attend AA meetings in person or telehealth. Client committed to not using any Adderall in the future. Client reported that he is using THC for glaucoma. He is planning to get a THC card. Typically client uses THC to control eye pressure. His opthamologist is aware of this use. Client has received written literature on bup/naloxone. at previous visit. UDS urine positive for BUP/NAL, positive for THC discussed this with patient for the THC helps with his eyesight. Demonstrated neck exercises. Not available 06/30/2025 17:23:12 Reason for Referral None Reported. Results Created Date Observation Date Name Description Value Unit Range Abnormal Flag Note LastModifiedBy Organization Detail LastModifiedTime 04/12/20 25 04/12/2025 drug scree n, urine Amphetamines : positi ve Not Available [facility], [address], [address], 04/12/2025 16:50:45 04/12/20 25 04/12/2025 drug scree n, urine Cannabinoids : positi ve Not Available [facility], [address], [address], 04/12/2025 16:50:45 04/12/20 25 04/12/2025 drug scree n, urine Cocaine: negati ve Not Available [facility], [address], [address], 04/12/2025 16:50:45 04/12/20 25 04/12/2025 drug scree n, urine Opiates: negati ve Not Available [facility], [address], [address], 04/12/2025 16:50:45 04/12/20 25 04/12/2025 drug scree n, urine Oxycodone negati ve Not Available [facility], [address], [address], 04/12/2025 16:50:45 04/12/20 25 04/12/2025 drug scree n, urine Barbiturates : negati ve Not Available [facility], [address], [address], 04/12/2025 16:50:45 04/12/20 25 04/12/2025 drug scree n, urine Benzodiazepi edith: negati ve Not Available [facility], [address], [address], 04/12/2025 16:50:45 04/12/20 25 04/12/2025 drug scree n, urine Ethanol: negati ve Not Available [facility], [address], [address], 04/12/2025 16:50:45 04/12/20 25 04/12/2025 drug scree n, urine Fentanyl negati ve Not Available [facility], [address], [address], 04/12/2025 16:50:45 04/12/20 25 04/12/2025 drug scree n, urine Methadone negati ve Not Available [facility], [address], [address], 04/12/2025 16:50:45 04/12/20 25 04/12/2025 drug scree n, urine Buprenoprhin e positi ve Not Available [facility], [address], [address], 04/12/2025 16:50:45 04/12/20 25 04/12/2025 drug scree n, urine MDMA negati ve Not Available [facility], [address], [address], 04/12/2025 16:50:45 05/05/20 25 05/05/2025 drug scree n, urine Amphetamines : negati ve Not Available [facility], [address], [address], 05/05/2025 16:01:23 05/05/20 25 05/05/2025 drug scree n, urine Cannabinoids : positi ve Not Available [facility], [address], [address], 05/05/2025 16:01:23 05/05/20 25 05/05/2025 drug scree n, urine Cocaine: negati ve Not Available [facility], [address], [address], 05/05/2025 16:01:23 05/05/20 25 05/05/2025 drug scree n, urine Opiates: negati ve Not Available [facility], [address], [address], 05/05/2025 16:01:23 05/05/20 25 05/05/2025 drug scree n, urine Oxycodone negati ve Not Available [facility], [address], [address], 05/05/2025 16:01:23 05/05/20 25 05/05/2025 drug scree n, urine Barbiturates : negati ve Not Available [facility], [address], [address], 05/05/2025 16:01:23 05/05/20 25 05/05/2025 drug scree n, urine Benzodiazepi edith: negati ve Not Available [facility], [address], [address], 05/05/2025 16:01:23 05/05/20 25 05/05/2025 drug scree n, urine Ethanol: negati ve Not Available [facility], [address], [address], 05/05/2025 16:01:23 05/05/20 25 05/05/2025 drug scree n, urine Fentanyl negati ve Not Available [facility], [address], [address], 05/05/2025 16:01:23 05/05/20 25 05/05/2025 drug scree n, urine Methadone negati ve Not Available [facility], [address], [address], 05/05/2025 16:01:23 05/05/20 25 05/05/2025 drug scree n, urine Buprenoprhin e positi ve Not Available [facility], [address], [address], 05/05/2025 16:01:23 05/05/20 25 05/05/2025 drug scree n, urine MDMA negati ve Not Available [facility], [address], [address], 05/05/2025 16:01:23 05/19/20 25 05/19/2025 drug scree n, urine Amphetamines : negati ve Not Available [facility], [address], [address], 05/19/2025 16:49:48 05/19/20 25 05/19/2025 drug scree n, urine Cannabinoids : positi ve Not Available [facility], [address], [address], 05/19/2025 16:49:48 05/19/20 25 05/19/2025 drug scree n, urine Cocaine: negati ve Not Available [facility], [address], [address], 05/19/2025 16:49:48 05/19/20 25 05/19/2025 drug scree n, urine Opiates: negati ve Not Available [facility], [address], [address], 05/19/2025 16:49:48 05/19/20 25 05/19/2025 drug scree n, urine Oxycodone negati ve Not Available [facility], [address], [address], 05/19/2025 16:49:48 05/19/20 25 05/19/2025 drug scree n, urine Barbiturates : negati ve Not Available [facility], [address], [address], 05/19/2025 16:49:48 05/19/2005/19/2025 drug scree n, urine Benzodiazepi edith: negati ve Not Available [facility], [address], [address], 05/19/2025 16:49:48 05/19/2005/19/2025 drug scree n, urine Ethanol: negati ve Not Available [facility], [address], [address], 05/19/2025 16:49:48 05/19/2005/19/2025 drug scree n, urine Fentanyl negati ve Not Available [facility], [address], [address], 05/19/2025 16:49:48 05/19/2005/19/2025 drug scree n, urine Methadone negati ve Not Available [facility], [address], [address], 05/19/2025 16:49:48 05/19/2005/19/2025 drug scree n, urine Buprenoprhin e positi ve Not Available [facility], [address], [address], 05/19/2025 16:49:48 05/19/20 25 05/19/2025 drug scree n, urine MDMA negati ve Not Available [facility], [address], [address], 05/19/2025 16:49:48 06/02/20 25 06/02/2025 drug scree n, urine Amphetamines : positi ve Not Available [facility], [address], [address], 06/02/2025 17:11:14 06/02/20 25 06/02/2025 drug scree n, urine Cannabinoids : positi ve Not Available [facility], [address], [address], 06/02/2025 17:11:14 06/02/20 25 06/02/2025 drug scree n, urine Cocaine: negati ve Not Available [facility], [address], [address], 06/02/2025 17:11:14 06/02/20 25 06/02/2025 drug scree n, urine Opiates: negati ve Not Available [facility], [address], [address], 06/02/2025 17:11:14 06/02/20 25 06/02/2025 drug scree n, urine Oxycodone negati ve Not Available [facility], [address], [address], 06/02/2025 17:11:14 06/02/20 25 06/02/2025 drug scree n, urine Barbiturates : negati ve Not Available [facility], [address], [address], 06/02/2025 17:11:14 06/02/20 25 06/02/2025 drug scree n, urine Benzodiazepi edith: negati ve Not Available [facility], [address], [address], 06/02/2025 17:11:14 06/02/20 25 06/02/2025 drug scree n, urine Ethanol: negati ve Not Available [facility], [address], [address], 06/02/2025 17:11:14 06/02/20 25 06/02/2025 drug scree n, urine Fentanyl negati ve Not Available [facility], [address], [address], 06/02/2025 17:11:14 06/02/20 25 06/02/2025 drug scree n, urine Methadone negati ve Not Available [facility], [address], [address], 06/02/2025 17:11:14 06/02/20 25 06/02/2025 drug scree n, urine Buprenoprhin e positi ve Not Available [facility], [address], [address], 06/02/2025 17:11:14 06/02/20 25 06/02/2025 drug scree n, urine MDMA negati ve Not Available [facility], [address], [address], 06/02/2025 17:11:14 06/30/20 25 06/30/2025 drug scree n, urine Amphetamines : negati ve Not Available [facility], [address], [address], 06/30/2025 17:06:43 06/30/20 25 06/30/2025 drug scree n, urine Cannabinoids : positi ve Not Available [facility], [address], [address], 06/30/2025 17:06:43 06/30/2006/30/2025 drug scree n, urine Cocaine: negati ve Not Available [facility], [address], [address], 06/30/2025 17:06:43 06/30/2006/30/2025 drug scree n, urine Opiates: negati ve Not Available [facility], [address], [address], 06/30/2025 17:06:43 06/30/2006/30/2025 drug scree n, urine Oxycodone negati ve Not Available [facility], [address], [address], 06/30/2025 17:06:43 06/30/2006/30/2025 drug scree n, urine Barbiturates : negati ve Not Available [facility], [address], [address], 06/30/2025 17:06:43 06/30/2006/30/2025 drug scree n, urine Benzodiazepi edith: negati ve Not Available [facility], [address], [address], 06/30/2025 17:06:43 06/30/2006/30/2025 drug scree n, urine Ethanol: negati ve Not Available [facility], [address], [address], 06/30/2025 17:06:43 06/30/2006/30/2025 drug scree n, urine Fentanyl negati ve Not Available [facility], [address], [address], 06/30/2025 17:06:43 06/30/2006/30/2025 drug scree n, urine Methadone negati ve Not Available [facility], [facility] [address] [place], [address], 06/30/2025 17:06:43 06/30/20 25 06/30/2025 drug scree n, urine Buprenoprhin e positi ve Not Available [facility], [facility] [address] [place], [address], 06/30/2025 17:06:43 06/30/20 25 06/30/2025 drug scree n, urine MDMA negati ve Not Available [facility], [facility] [address] [place], [address], 06/30/2025 17:06:43 Result Notes None recorded. Problems Name Problem SNOMED Code Status Onset Date Resolution Date Notes Provider Name and Address Organization Details Recorded Time Long-term drug therapy Active 2019 Sintia Palma NP, A [address] [facility], [place], [address], [facility] - [facility], [facility] 0 12:26:02 Health maintenance alteration 86365655 Active 2019 Sintia Palma NP, A [address] [facility], [place], [address], [facility] - [facility], [facility] 0 12:26:07 Medical examination for suspected condition Active 2019 Sintia Palma NP, A [address] [facility], [place], [address], [facility] - [facility], [facility] 0 14:29:00 Generalized anxiety disorder 58288098 Active 2020 Sintia Palma NP, A [address] [facility], [place], [address], [facility] - [facility], [facility] 1 13:57:46 Muscle spasm of cervical muscle of neck 961026994358 Active 2020 Sintia Palma NP, A [address] [facility], [place], [address], [facility], [facility] 1 15:02:49 Pain of shoulder region 59412393 Active 2020 Sintia Palma NP, A [address], [place], [address], [facility], [facility] 1 17:04:29 Pain in left foot [id number] 07 Active 2020 Sintia Palma NP, A [address], [place], [address], [facility], [facility] 1 16:16:30 Numbness of hand 729282665 Active 2020 Sintia Palma NP, A [address], [place], [address], [facility], [facility] 1 14:52:03 Unprotected sexual intercourse 3023966 Active 2020 Sintia Palma NP, A [address], [place], [address], [facility], [facility] 1 14:58:50 Chronic hepatitis C 407887153 Active 2020 Sintia Palma NP, A [address], [place], [address], [facility], [facility] 1 15:00:42 Neck pain 82658106 Active 2020 Sintia Palma NP, A [address], [place], [address], [facility], [facility] 5 17:33:27 Contact dermatitis 43834636 Active 2020 Sintia Palma NP, A [address], [place], [address], [facility], [facility] 1 16:27:11 Viral screening Active 2020 Sintia Palma NP, A [address], [place], [address], [facility], [facility] 1 16:29:05 Muscle tension pain 308928340 Active 2020 Sintia Palma NP, A [address] [facility], [place], [address], [facility] - [facility], [facility] 1 16:31:15 Irregular heart beat 736474850 Active 2020 Sintia Palma NP, A [address] [facility], [place], [address], [facility] - [facility], [facility] 1 16:06:26 Low back pain 565694069 Active 2021 Sintia Palma NP, A [address] [facility], [place], [address], [facility] - [facility], [facility] 2 15:11:06 Otalgia 65731779 Active 2021 Sintia Palma NP, A [address] [facility], [place], [address], [facility] - [facility], [facility] 2 18:03:25 Muscle pain 28390196 Active 2021 Sintia Palma NP, A [address] [facility], [place], [address], [facility] - [facility], [facility] 2 17:45:14 Acute right otitis media [id number] Active 2021 Sintia Palma NP, A [address] [facility], [place], [address], [facility] - [facility], [facility] 2 18:07:58 Benign essential hypertensio n 0317376 Active 2021 Sintia Palma NP, A [address] [facility], [place], [address], [facility] - [facility], [facility] 2 17:47:25 Excessive cerumen in ear canal 418800602 Active 2021 Sintia Palma NP, A [address] [facility], [place], [address], [facility] - [facility], [facility] 2 17:12:47 Infection of skin and/or subcutaneou s tissue 26008557 Active 2021 Sintia Palma NP, A [address], [place], [address], [facility], [facility] 2 17:13:53 Fatigue 36841564 Active 2021 Sintia Palma NP, A [address], [place], [address], [facility], [facility] 2 17:18:07 Pruritic rash 52181433 Active 2022 Sintia Palma NP, A [address], [place], [address], [facility], [facility] 3 16:33:04 Tinea pedis 7028120 Active 2022 Sintia Palma NP, A [address], [place], [address], [facility], [facility] 3 16:35:38 Erectile dysfunction 512505595 Active 2022 Sintia Palma NP, A [address], [place], [address], [facility], [facility] 3 16:59:55 Dermatophyt osis 86524816 Active 2022 Sintia Palma NP, A [address], [place], [address], [facility], [facility] 3 16:48:08 Dysphagia 92667394 Active 2022 Sintia Palma NP, A [address], [place], [address], [facility], [facility] 3 15:11:54 Nausea 483457917 Active 2023 Sintia Palma NP, A [address], [place], [address], [facility], [facility] 5 18:03:43 Venereal disease screening Active 2023 Sintia Palma NP, A [address], [place], [address], [facility], [facility] 4 17:57:37 Screening for cardiovascu lar system disease Active 2023 Sintia Palma NP, A [address], [place], [address], [facility], [facility] 4 17:57:41 Gastroesoph ageal reflux disease 542447696 Active 2023 Sintia Palma NP, A [address], [place], [address], [facility], [facility] 4 17:57:46 Renewal of prescriptio n Active 2023 Sintia Palma NP, A [address], [place], [address], [facility], [facility] 4 17:57:54 Pain of left shoulder joint [id number] 9109 Active 2023 Sintia Palma NP, A [address], [place], [address], [facility], [facility] 4 17:27:26 Pain of ear 136789137 Active 2023 Sintia Palma NP, A [address], [place], [address], [facility], [facility] 4 16:16:58 Seasonal allergy 966650789 Active 2023 Sintia Palma NP, A [address], [place], [address], [facility], [facility] 4 17:16:09 Constipatio n 27682285 Active 2023 Sintia Palma NP, A [address], [place], [address], [facility], [facility] 4 16:46:28 Spasm 19388584 Active 2024 Sintia Palma NP, A [address], [place], [address], [facility], [facility] 5 16:10:06 Lack of energy 128607356 Active 2024 Sintia Palma NP, A [address], [place], [address], [facility], [facility] 5 17:39:20 Depressive disorder 29859088 Active 2024 Sintia Palma NP, A [address], [place], [address], [facility], [facility] 5 17:41:07 Acute abdominal pain 614877630 Active 2024 Sintia Palma NP, A [address] [facility], [place], [address], [facility], [facility] 5 17:30:29 Problem Notes None recorded. Procedures Surgical History Date Name Laterality Status Provider Name and Address Organization Details Recorded Time arthroscopy completed Sintia Palma NP, A [address] [facility], [place], [address], [facility], [facility] 08/24/2020 12:16:21 Imaging Results None recorded. Procedure Notes None recorded. Medical Equipment None Reported. Allergies No known drug allergies Medications Name Sig Start Date Stop Date Status Note LastModified by Organization Details LastModified Time amoxicillin 500 mg capsule 09/21 completed Not Available Not Available Not Available latanoprost 0.005 % eye drops INSTILL 1 DROP INTO AFFECTED EYE ONCE DAILY active Not Available Not Available No t Available terbinafine HCl 1 % topical cream APPLY TO THE AFFECTED AREA AND SURROUNDI NG AREAS OF SKIN TOPICALLY ONCE DAILY 02/02 completed Not Available Not Available Not Available doxepin 50 mg capsule TAKE 1 CAPSULE BY MOUTH EVERY DAY AT BEDTIME 01/11 completed Not Available Not Available Not Available naproxen 375 mg tablet Take 1 tablet twice a day by oral route for 30 days. 02/02 completed Not Available Not Available Not Available clindamycin HCl 300 mg capsule TAKE 1 CAPSULE BY MOUTH THREE TIMES A DAY FOR 10 DAYS 08/29 completed Not Available Not Available Not Available azithromyci n 250 mg tablet TAKE 2 TABLETS (500 MG) BY ORAL ROUTE ONCE DAILY FOR 1 DAY THEN 1 TABLET (250 MG) BY ORAL ROUTE ONCE DAILY FOR 4 DAYS 12/03 completed Not Available Not Available Not Available ibuprofen 800 mg tablet TAKE 1 TABLET BY MOUTH EVERY 6 TO 8 HOURS NEEDED FOR PAIN 10/16 completed Not Available Not Available Not Available tizanidine 4 mg tablet TAKE 1 TABLET BY MOUTH EVERY 8 HOURS FOR 14 DAYS NEEDED 03/10 completed Not Available Not Available Not Available fluconazole 150 mg tablet TAKE 1 TABLET BY MOUTH EVERY DAY 08/07 completed Not Available Not Available Not Available benzonatate 200 mg capsule Take 1 capsule 3 times a day by oral route as directed for 7 days. 03/10 completed Not Available Not Available Not Available hydrocodone 5 mg-acetamin ophen 325 mg tablet TAKE 1 TABLET BY MOUTH EVERY 6 HOURS NEEDED FOR PAIN active Not Available Not Available No t Available naltrexone 50 mg tablet 05/31 completed Not Available Not Available Not Available famotidine 40 mg tablet TAKE 1 TABLET BY MOUTH EVERY DAY 02/02 completed Not Available Not Available Not Available atenolol 25 mg tablet TAKE 1 TABLET BY MOUTH EVERY DAY 06/17 completed Not Available Not Available Not Available clobetasol 0.05 % topical cream APPLY A THIN LAYER TO THE AFFECTED AREA(S) BY TOPICAL ROUTE 2 TIMES PER DAY 04/21 completed Not Available Not Available Not Available permethrin 5 % topical cream APPLY TOPICALLY SEE ADMIN INSTRUCTI ONS FOR 7 DAYS. APPLY REPEAT IN 1 WEEK IF NEEDED. 08/29 completed Not Available Not Available Not Available omeprazole 40 mg capsule,del ayed release TAKE 1 CAPSULE BY MOUTH EVERY DAY IN THE MORNING 05/31 completed Not Available Not Available Not Available triamcinolo ne acetonide 0.1 % topical cream Apply 1 applicati on twice a day by topical route as directed for 10 days. 2024 active Not Available Not Available Not Avai lable amoxicillin 500 mg tablet TAKE 1 TABLET BY MOUTH EVERY 8 HOURS UNTIL ALL TAKEN 06/20 completed Not Available Not Available Not Available ondansetron 8 mg disintegrat ing tablet DISSOLVE 1 TABLET IN MOUTH THREE TIMES DAILY FOR 6 DAYS active Not Available Not Available No t Available baclofen 20 mg tablet TAKE 1 TABLET BY MOUTH THREE TIMES A DAY 09/21 completed Not Available Not Available Not Available ketorolac 10 mg tablet 09/21 completed Not Available Not Available Not Available citalopram 20 mg tablet TAKE 1 TABLET BY MOUTH EVERY DAY 06/20 completed Not Available Not Available Not Available prednisolon e acetate 1 % eye drops,suspe nsion SHAKE LIQUID AND INSTILL 1 DROP IN RIGHT EYE FOUR TIMES DAILY active Not Available Not Available No t Available magnesium oxide 400 mg (241.3 mg magnesium) tablet Take 1 tablet every day by oral route in the morning for 30 days. 03/10 completed Not Available Not Available Not Available Ear Wax Removal Drops 6.5 % INSTILL 5 DROPS INTO AFFECTED EARS 2 TIMES PER DAY NEEDED. 08/21 completed Not Available Not Available Not Available baclofen 10 mg tablet TAKE 1 TABLET BY MOUTH THREE TIMES DAILY NEEDED 02/02 completed Not Available Not Available Not Available cephalexin 500 mg capsule Take 1 capsule every 8 hours by oral route as directed for 10 days. 07/03 completed Not Available Not Available Not Available doxepin 100 mg capsule TAKE 1 CAPSULE BY MOUTH EVERY NIGHT AT BEDTIME 09/21 completed Not Available Not Available Not Available pantoprazol e 40 mg tablet,jhon yed release Take 1 tablet every day by oral route in the morning for 30 days. 03/10 completed Not Available Not Available Not Available buspirone 10 mg tablet TAKE 2 TABS BY MOUTH IN THE AFTERNOON IN ADDITION TO BUSPIRONE 15 MG TAKEN TWICE DAILY 08/29 completed Not Available Not Available Not Available clotrimazol e-betametha sone 1 %-0.05 % topical cream APPLY TOPICALLY TO THE AFFECTED AND SURROUNDI NG AREAS TWICE DAILY IN THE MORNING AND IN THE EVENING FOR 2 WEEKS 10/09 completed Not Available Not Available Not Available ibuprofen 400 mg tablet TAKE 2 TABLETS BY MOUTH EVERY 8 HOURS 10/16 completed Not Available Not Available Not Available docusate sodium 100 mg capsule TAKE 1 CAPSULE BY MOUTH TWICE DAILY DIRECTED active Not Available Not Available No t Available buspirone 7.5 mg tablet TAKE 1 TABLET BY MOUTH TWICE DAILY 02/27 completed Not Available Not Available Not Available diclofenac sodium 75 mg tablet,jhon yed release TAKE 1 TABLET BY MOUTH TWICE DAILY active Not Available Not Available No t Available mupirocin 2 % topical ointment APPLY SMALL AMOUNT TOPICALLY TO THE AFFECTED AREA THREE TIMES DAILY 08/21 completed Not Available Not Available Not Available diclofenac sodium 50 mg tablet,jhon yed release TAKE 1 TAB BY MOUTH 3 TIMES DAILY (WITH MEALS). 08/29 completed Not Available Not Available Not Available pyridoxine (vitamin B6) 100 mg tablet TAKE 1 TABLET BY MOUTH EVERY DAY IN THE MORNING 10/09 completed Not Available Not Available Not Available ibuprofen 600 mg tablet TAKE 1 TABLET BY MOUTH EVERY 6 HOURS NEEDED FOR PAIN OR FEVER 05/31 completed Not Available Not Available Not Available polyethylen e glycol 3350 17 gram/dose oral powder Take 17 g every day by oral route as needed for 30 days. active Not Available Not Available No t Available methylpredn isolone 4 mg tablets in a dose pack TAKE BY MOUTH DIRECTED ON INSIDE OF PACKAGE 03/10 completed Not Available Not Available Not Available ondansetron 4 mg disintegrat ing tablet Place 2 tablets every 8 hours by transling ual route as needed for 15 days. 05/13 completed Not Available Not Available Not Available cefdinir 300 mg capsule TAKE 1 CAPSULE BY MOUTH EVERY 12 HOURS DIRECTED FOR 10 DAYS 03/10 completed Not Available Not Available Not Available atenolol 50 mg tablet TAKE 1 TABLET BY MOUTH ONCE DAILY IN THE MORNING FOR 90 DAYS active Not Available Not Available No t Available buspirone 15 mg tablet TAKE 1 TABLET BY MOUTH THREE TIMES DAILY 08/21 completed Not Available Not Available Not Available escitalopra m 10 mg tablet TAKE 1 TABLET BY MOUTH EVERY DAY 10/14 completed Not Available Not Available Not Available buprenorphi ne 8 mg-naloxone [address] 2 TABLETS UNDER THE TONGUE ONCE DAILY IN THE MORNING FOR 14 DAYS 03/10 completed Not Available Not Available Not Available Ciprodex 0.3 %-0.1 % ear drops,suspe nsion INSTILL 4 DROPS INTO AFFECTED EAR(S) BY OTIC ROUTE 2 TIMES PER DAY FOR 7 DAYS 11/04 completed Not Available Not Available Not Available bupropion HCl XL 150 mg 24 hr tablet, extended release TAKE 1 TABLET BY MOUTH ONCE DAILY IN THE MORNING FOR 30 DAYS active Not Available Not Available No t Available chlorhexidi ne gluconate 0.12 % mouthwash RINSE WITH 15 ML BY MOUTH 2 TIMES DAILY DIRECTED 05/31 completed Not Available Not Available Not Available triamcinolo ne apply sparingly to affected areas of the skin 12/17 completed Not Available Not Available Not Available Vivitrol 380 mg intramuscul ar suspension, extended release 05/31 completed Not Available Not Available Not Available levocetiriz ine 5 mg tablet Take 1 tablet every day by oral route in the morning for 30 days. 03/10 completed Not Available Not Available Not Available Mucus Relief ER 600 mg tablet, extended release TAKE 1 TABLET BY MOUTH EVERY 12 HOURS FOR 7 DAYS 03/10 completed Not Available Not Available Not Available buprenorphi ne 8 mg-naloxone [address] 2 STRIPS UNDER THE TONGUE ONCE DAILY IN THE MORNING FOR 14 DAYS active Not Available Not Available No t Available Narcan 4 mg/actuatio n nasal spray 06/20 completed Not Available Not Available Not Available Mavyret 100 mg-40 mg tablet Take 3 tablets every day by oral route in the morning for 30 days. 02/02 completed Not Available Not Available Not Available Sublocade 300 mg/1.5 mL solution,ex tended release subcutaneou s syringe Inject 1.5 mL every month by subcutane ous route. 06/20 completed Not Available Not Available Not Available Sublocade 100 mg/0.5 mL solution,ex tended release subcutaneou s syringe Inject 0.5 mL every month by subcutane ous route. 10/09 completed Not Available Not Available Not Available baclofen 5 mg tablet TAKE 1 TABLET BY MOUTH THREE TIMES DAILY FOR 7 DAYS 10/09 completed Not Available Not Available Not Available Vitals Date Recorded Body height Heart rate Body temperature Body mass index (BMI) Body weight Oxygen saturation Oxygen saturation in Arterial blood by Pulse oximetry Systolic And Diastolic Provider Name and Address Organization Details Last Updated DateTime 5 167.64 cm 69 /min 97.6 [degF] 32.6 kg/m2 75267.9 4 g 99 % 99 % 136/75 mm[Hg] xochitl [place] [facility], [facility] 5 16:00:04 Date Recorded Body height Heart rate Body temperature Body mass index (BMI) Body weight Oxygen saturation Oxygen saturation in Arterial blood by Pulse oximetry Systolic And Diastolic Provider Name and Address Organization Details Last Updated DateTime 5 167.64 cm 62 /min 95.7 [degF] 32.1 kg/m2 08019.1 6 g 98 % 98 % 146/84 mm[Hg] Barbie Palma [facility], [facility] 5 16:44:20 Date Recorded Body height Heart rate Body temperature Body mass index (BMI) Body weight Oxygen saturation Oxygen saturation in Arterial blood by Pulse oximetry Systolic And Diastolic Provider Name and Address Organization Details Last Updated DateTime 5 167.64 cm 97 /min 97.6 [degF] 31.2 kg/m2 48680.0 5 g 99 % 99 % 137/84 mm[Hg] xochitl [place] [facility], [facility] 5 17:04:45 Date Recorded Body height Heart rate Body temperature Body mass index (BMI) Body weight Oxygen saturation Oxygen saturation in Arterial blood by Pulse oximetry Systolic And Diastolic Provider Name and Address Organization Details Last Updated DateTime 5 167.64 cm 59 /min 97.7 [degF] 31 kg/m2 01561.0 2 g 97 % 97 % 133/75 mm[Hg] xochitl [place] [facility], [facility] 5 16:58:14 Date Recorded Body height Heart rate Body mass index (BMI) Body weight Oxygen saturation Oxygen saturation in Arterial blood by Pulse oximetry Provider Name and Address Organization Details Last Updated DateTime 5 167.64 cm 91 /min 31 kg/m2 95172.7 4 g 99 % 99 % xochitl [place] [facility], [facility] 5 17:06:38 Social History Question Answer Notes LastModified by Organizat ion Details LastModified Time Tobacco Smoking Status Current Every Day Smoker Sintia Palma NP, A [address] [place], [address], [facility] - [facility], [facility] 08/24/2020 12:14:17 Do You Have An Advance Directive? No Provided Copy Of [facility] Advance Directive [email or web address] Information not available 03/05/2023 What Is Your Level Of Caffeine Consumption? Moderate [email or web address] Information not available 10/14/2020 How Much Tobacco Do You Chew? None [email or web address] Information not available 10/14/2020 What Type Of Diet Are You Following? REGULAR [email or web address] Information not available 10/14/2020 Education 10 [email or web address] Information no t available 10/14/2020 Swimming/divi ng Yes Information not available 10/14/2020 Are There Any Guns Present In Your Home? No [email or web address] Information not available 10/14/2020 Hard Of Hearing Or Deaf In One Or Both Ears? No [email or web address] Information not available 10/14/2020 Legally Blind In One Or Both Eyes? No Information not available 10/14/2020 Live Alone Or With Others? With Others [email or web address] Information not available 10/14/2020 How Many Children Do You Have? 1 [email or web address] Information not available 10/14/2020 Seat Belts Used Routinely Yes [email or web address] Information not available 10/14/2020 Are You Sexually Active? No [email or web address] Information not available 10/14/2020 Smoke Alarm In Home Yes [email or web address] Information not available 10/14/2020 How Much Tobacco Do You Smoke? 0.25 PPD Information not available 10/14/2020 Do You Use Sunscreen Routinely? No [email or web address] Information not available 10/14/2020 How Many Years Have You Smoked Tobacco? 20 Information not available 09/26/2021 Sex: Unknown Functional Status Question Answer Note LastModified by Organizat ion Details LastModified Time What is your level of alcohol consumption? None [email or web address] Information not available 10/14/2020 Are you currently employed? Yes [email or web address] Information not available 10/14/2020 Are you able to care for yourself independently? 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 Moderate [email or web address] Information not available 10/14/2020 Mental Status None recorded. Family History Relationship Description Onset Age of this Age Resolved Age Notes LastModified by Organization Details LastModified Time Maternal Grandfather Myocardial infarction Not available 10/14 16:36:15 Maternal Grandfather Diabetes mellitus [email or web address] Not available 2020 16:36:45 Mother Diabetes mellitus [email or web address] Not available 2020 16:36:45 Mother Radial tunnel syndrome [email or web address] Not available 2020 16:37:11 Mother Hypertensive disorder [email or web address] Not available 2021 15:11:51 Mother Heart disease Not available 2023 17:30:42 Mother Lung mass [email or web address] Not availab le 02/12/2024 17:31:38 Brother Hypertensive disorder [email or web address] Not available 2021 15:11:30 Father Hypertensive disorder Not available 2021 15:11:41 Unspecified Relation Myocardial infarction [email or web address] Not available 02/11 17:31:05 Medical History Condition Response Liver Disease Y Muscle, Joint, or Bone Problems Y Mental Disorder Y Past Encounters Encounter ID Performer Location Encounter Start Date Encounter Closed Date Diagnosis/Indication Diagnosis SNOMED-CT Code Diagnosis ICD10 Code Diagnosis IMO Codes Diagnosis Note [id number] Sintia Palma NP, A [address] [address] 08/24/2020 11:56:28 08/24/2020 13:01:35 Medical examination for suspected condition 586677332 Z03.818 Health ana ntenance alteration 63822401 Z78.9 Z11.8 Long-term drug therapy 231109878 Z79.899 [id number] Sintia Palma NP, A [address] [address] 08/26/2020 13:39:22 08/29/2020 09:18:37 Long-term drug therapy 329176078 Z79.899 [id number] Sintia Palma NP, A [facility], [address] [address] 08/29/2020 13:11:49 08/29/2020 16:10:56 Renewal of prescription 814559111 Z76.0 Long-term drug therapy 246675008 Z79.899 [id number] Sintia Palma NP, A [facility], [address] 6 09/05/2020 17:46:45 09/06/2020 20:08:44 Renewal of prescription 958539042 Z76.0 Long-term drug therapy 417815910 Z79.899 Nausea and vomiting 1693 1999 R11.2 [id number] Sintia Palma NP, A [facility], [address] 6 09/14/2020 13:04:49 09/14/2020 16:01:13 Renewal of prescription 590985073 Z76.0 Long-term drug therapy 884588136 Z79.899 Generalize d anxiety disorder 23408621 F41.1 Restless sleep 99341301 G47.9 Muscle spa sm of cervical muscle of neck 3908321443 04 M62.838 [id number] Sintia Palma NP, A [facility], [place] [address] 09/21/2020 14:18:51 09/21/2020 15:44:02 Renewal of prescription 272306148 Z76.0 Long-term drug therapy 157632498 Z79.899 [id number] Sintia Palma NP, A [facility], [address] [address] 09/27/2020 09:25:34 09/30/2020 15:01:49 Renewal of prescription 552600790 Z76.0 Long-term drug therapy 634695220 Z79.899 [id number] Sintia Palma NP, A [facility], [place] [address] 10/04/2020 14:15:24 10/04/2020 16:33:11 Renewal of prescription 917124523 Z76.0 Long-term drug therapy 849592586 Z79.899 [id number] Sintia Palma NP, A [facility], [address] [address] 10/14/2020 15:22:22 10/17/2020 09:00:44 Muscle spasm of cervical muscle of neck 7236905242 04 M62.838 Renewal of prescription 074118982 Z76.0 Long-term drug therapy 322386727 Z79.899 Pain of sh oulder region 84702964 M25.519 Phalen's sign 01148799 R 29.898 [id number] Sintia Palma NP, A [facility], [address] [address] 10/21/2020 15:00:51 10/21/2020 16:44:37 Renewal of prescription 206529910 Z76.0 Long-term drug therapy 881661540 Z79.899 Pain in left foot 611195 2012 56000 M79.672 [id number] Sintia Palma NP, A [facility], [address] [address] 10/26/2020 12:21:09 10/27/2020 19:33:12 Renewal of prescription 616498137 Z76.0 Long-term drug therapy 509465250 Z79.899 Medical ex amination for suspected condition 416574147 Z03.818 [id number] Sintia Palma NP, A [facility], [address] [address] 12/07/2020 14:58:42 03/09/2021 22:35:12 Renewal of prescription 131746133 Z76.0 Long-term drug therapy 846829542 Z79.899 Numbness of hand 6155159 04 R20.0 Health ana ntenance alteration 71495346 Z78.9 Z11.8 [id number] Sintia Palma NP, A [facility], [address] [address] 12/14/2020 14:49:03 03/12/2021 14:26:58 Renewal of prescription 149118939 Z76.0 Generalize d anxiety disorder 72494926 F41.1 Muscle spa sm of cervical muscle of neck 7772718853 04 M62.838 Gastroesop hageal reflux disease 790955366 K21.9 Neck pain 64835476 M54.2 [id number] Sintia Palma NP, A [facility], [address] [address] 12/16/2020 15:55:56 03/12/2021 18:57:20 Drug-induced constipation 84988883 K59.03 [id number] Sintia Palma NP, A [facility], [address] [address] 01/11/2021 14:33:42 04/16/2021 19:21:50 Renewal of prescription 437680847 Z76.0 Generalize d anxiety disorder 65753619 F41.1 Long-term drug therapy 482208689 Z79.899 Unprotecte d sexual intercourse 6487304 Z72.51 Chronic hepatitis C 1283 08630 B18.2 [facility] Contact dermatitis 53196 004 L25.9 Gastroesop hageal reflux disease 780462710 K21.9 [id number] Sintia Palma NP, A [facility], [address] [address] 02/07/2021 16:09:20 05/29/2021 16:25:51 Renewal of prescription 524728390 Z76.0 Contact dermatitis 10963 004 L25.9 Muscle tension pain 2790 57765 M79.10 Muscle spa sm of cervical muscle of neck 4549957809 04 M62.838 [id number] Sintia Palma NP, A [facility], [address] [address] 05/31/2021 15:54:18 08/14/2021 17:12:55 Chronic hepatitis C 044161992 B18.2 [facility], PT/INR Muscle spa sm of cervical muscle of neck 7052288856 04 M62.838 Renewal of prescription [id number] Z76.0 Health ana ntenance alteration 24768931 Z78.9 Z11.8 Vit D level to [facility] s Generalize d anxiety disorder 33468975 F41.1 8576 Sintia Palma NP, A [facility], [address] [address] 06/08/2021 15:37:10 08/18/2021 16:28:23 Chronic hepatitis C 223247925 B18.2 9073 Sintia Palma NP, A [facility], [address] [address] 6 07/07/2021 15:02:00 08/27/2021 23:33:41 Chronic hepatitis C 270777722 B18.2 hepatitis quantative PCR 9534 Sintia Palma NP, A [facility], [address] [address] 08/07/2021 15:43:02 11/08/2021 20:45:43 Muscle spasm of cervical muscle of neck 5495239502 04 M62.838 Generalize d anxiety disorder 45043518 F41.1 Gastroesop hageal reflux disease 290468609 K21.9 Irregular heart beat 361 479314 R00.8 Chronic hepatitis C 1283 98372 B18.2 hepatitis quantative PCR 39862 Sintia Palma NP, A [facility], [address] [address] 09/26/2021 12:15:02 12/21/2021 19:54:23 Medical examination for suspected condition 140865595 Z03.818 Viral screening 86201543 4 Z11.52 Rapid COVID-19 Ag to [facility] . 92819 Sintia Palma NP, A [facility], [address] [address] 6 02/02/2022 14:33:17 02/23/2022 16:32:18 Generalized anxiety disorder 45908242 F41.1 Irregular heart beat 361 156043 R00.8 Long-term drug therapy 227501190 Z79.899 Low back pain 297381001 M54.50 93408 Sintia Plama NP, A [facility], [address] [address] 02/12/2022 14:00:47 02/28/2022 15:05:08 Long-term drug therapy 323018372 Z79.899 Otalgia 28022323 H92.01 25690 Sintia Palma NP, A [facility], [address] [address] 6 02/19/2022 17:25:49 03/01/2022 15:05:51 Health maintenance alteration 85681931 Z78.9 Z11.8 Long-term drug therapy 624009989 Z79.899 00126 Sintia Palma NP, A [facility], [address] [address] 02/27/2022 15:21:18 03/02/2022 16:02:21 Health maintenance alteration 78585926 Z78.9 Z11.8 Long-term drug therapy 612990854 Z79.899 Generalize d anxiety disorder 16467093 F41.1 Pruritic rash 14649467 L 28.2 Neck pain 84031552 M54.2 Pain in right foot 80688 79705 73108 M79.671 29673 Sintia Palma NP, A [facility], [address] [address] 6 03/06/2022 15:57:07 03/14/2022 13:51:18 Long-term drug therapy 807116151 Z79.899 Health ana ntenance alteration 06787105 Z78.9 Z11.8 Generalize d anxiety disorder 14916546 F41.1 Muscle pain 06409597 M79 .10 36906 Sintia Palma NP, A [facility], [address] [address] 6 03/16/2022 15:35:43 04/11/2022 13:37:07 Long-term drug therapy 417588897 Z79.899 Muscle pain 52578302 M79 .10 Pruritic rash 88177742 L 28.2 11569 Sintia Palma NP, A [facility], [place] [address] 6 04/11/2022 17:03:01 04/25/2022 12:21:45 Long-term drug therapy 652832561 Z79.899 Benign ess ential hypertension 1588422 I10 Acute righ t otitis media 812089688 H66.91 79773 Sintia Palma NP, A [facility], [place] [address] 6 05/15/2022 17:11:18 06/07/2022 14:24:58 Long-term drug therapy 741468821 Z79.899 14583 Sintia Palma NP, A [facility], [place] [address] 6 06/15/2022 16:42:18 06/21/2022 14:49:21 Long-term drug therapy 967861376 Z79.899 62468 Sintia Palma NP, A [facility], [place] [address] 6 06/20/2022 16:38:48 06/21/2022 15:18:37 Generalized anxiety disorder 13998347 F41.1 Neck pain 83068563 M54.2 95500 Sintia Palma NP, A [facility], [place] [address] 07/18/2022 16:16:37 07/20/2022 15:53:02 Long-term drug therapy 573033464 Z79.899 Neck pain 99729272 M54.2 Infection of skin and/or subcutaneous tissue 71076030 L08.9 Tinea pedis 5869828 B35. 3 Excessive cerumen in ear canal 038118086 H61.23 38512 Sintia Palma NP, A [facility], [place] [address] 6 09/18/2022 15:26:44 09/28/2022 16:41:18 Pruritic rash 58531929 L28.2 Long-term drug therapy 518362264 Z79.899 Foundation Pain Index 17902 Sintia Palma NP, A [facility], [address] [address] 6 09/26/2022 16:19:08 10/11/2022 13:55:34 Long-term drug therapy 846254152 Z79.899 Foundation Pain Index Neck pain 30192913 M54.2 Erectile dysfunction 860 072892 F52.21 testostero ne free and total to [facility] 95633 Sintia Palma NP, A [facility], [address] [address] 03/05/2023 16:10:30 03/21/2023 14:57:21 Renewal of prescription 105200396 Z76.0 Long-term drug therapy 210433758 Z79.899 Neck pain 71598968 M54.2 ETHOS functional pain scale assessment Dermatophytosis 06004164 B35.9 52028 Sintia Palma NP, A [facility], [address] [address] 6 03/19/2023 17:10:07 03/29/2023 16:00:56 Renewal of prescription 334675592 Z76.0 Long-term drug therapy 740711603 Z79.899 [facility] ana ntenance alteration 63812390 Z78.9 Z11.8 14175 Sintia Palma NP, A [facility], [address] [address] 03/27/2023 14:10:18 04/05/2023 15:15:57 Renewal of prescription 427440937 Z76.0 Long-term drug therapy 886174195 Z79.899 Dysphagia 51134148 R13.1 0 99854 Sintia Palma NP, A [facility], [address] [address] 04/02/2023 14:24:24 04/12/2023 15:08:33 Renewal of prescription 836227386 Z76.0 Long-term drug therapy 665144794 Z79.899 90423 Sintia Palma NP, A [facility], [address] [address] 04/05/2023 12:54:33 04/12/2023 15:42:13 Renewal of prescription 610553021 Z76.0 Long-term drug therapy 921799650 Z79.899 Nausea 304965120 R11.0 03032 Sintia Palma NP, A [facility], [place] [address] 6 10/09/2023 16:47:56 10/10/2023 12:56:19 Renewal of prescription 390931639 Z76.0 Long-term drug therapy 430247853 Z79.899 Neck pain 26663467 M54.2 Gastroesop hageal reflux disease 945403887 K21.9 Screening for cardiovascular system disease 811604627 Z13.6 Screening for disorder 097425254 Z13.9 Venereal d isease screening 061964991 Z11.3 27050 Sintia Palma NP, A [facility], [address] [address] 10/16/2023 16:18:16 10/16/2023 16:56:28 Renewal of prescription 745041122 Z76.0 Pain of le ft shoulder joint 5574593098 7615942 M25.512 Long-term drug therapy 309137874 Z79.899 98042 Sintia Palma NP, A [facility], [place] [address] 6 10/23/2023 16:37:29 10/24/2023 15:22:03 Renewal of prescription 602876094 Z76.0 Long-term drug therapy 274665194 Z79.899 Benign ess ential hypertension 9343220 I10 Pain of sh oulder region 72443433 M25.519 24562 Sintia Palma NP, A [facility], [address] [address] 6 10/29/2023 15:34:00 10/29/2023 17:37:01 Renewal of prescription 939869963 Z76.0 Long-term drug therapy 827204850 Z79.899 Pain of sh oulder region 88074396 M25.519 97770 Rosi Saucedo [facility], [address] [address] 11/06/2023 15:29:16 04/21/2024 08:37:39 Renewal of prescription 756588692 Z76.0 Long-term drug therapy 198960983 Z79.899 Pain of ear 041142047 H9 2.09 61613 Sintia Palma NP, A [facility], [address] [address] 11/12/2023 15:27:52 11/12/2023 16:24:13 Renewal of prescription 265929167 Z76.0 Long-term drug therapy 634535689 Z79.899 Bilateral glaucoma 14749 92926 6324679 H40.9 69773 Sintia Palma NP, A [facility], [address] [address] 6 11/20/2023 16:10:13 11/20/2023 18:39:48 Renewal of prescription 156862131 Z76.0 Long-term drug therapy 921001082 Z79.899 Pain of le ft shoulder joint 0922612285 8437134 M25.512 Acute righ t otitis media 380262606 H66.91 98364 Sintia Palma NP, A [facility], [address] [address] 12/04/2023 16:40:05 12/04/2023 17:35:03 Renewal of prescription 793251891 Z76.0 Long-term drug therapy 536366380 Z79.899 Contact dermatitis 97964 004 L25.9 Pruritic rash 11714904 L 28.2 63515 Sintia Palma NP, A [facility], [address] [address] 6 12/18/2023 15:54:19 12/18/2023 16:50:46 Renewal of prescription 000152274 Z76.0 Long-term drug therapy 616481922 Z79.899 96828 Sintia Palma NP, A [facility], [place] [address] 6 01/01/2024 16:41:25 04/21/2024 12:33:52 Renewal of prescription 476791243 Z76.0 Long-term drug therapy 157182976 Z79.899 Contact dermatitis 17950 004 L25.9 Seasonal allergy 4260269 04 J30.2 24348 Sintia Palma NP, A [facility], [place] [address] 6 01/15/2024 16:58:46 03/19/2024 14:20:15 Renewal of prescription 174027611 Z76.0 Long-term drug therapy 121247956 Z79.899 64102 Sintia Palma NP, A [facility], [place] [address] 6 01/29/2024 17:29:55 04/21/2024 15:02:18 Renewal of prescription 339081226 Z76.0 Long-term drug therapy 672144555 Z79.899 89289 Sintia Palma NP, A [facility], [place] [address] 6 02/12/2024 17:20:08 04/21/2024 15:12:50 Renewal of prescription 343130366 Z76.0 Long-term drug therapy 852166987 Z79.899 Pain of to es of bilateral feet 5765950809 5827188 M79.674 M79.675 48310 Sintia Palma NP, A [facility], [address] [address] 6 02/26/2024 17:49:24 02/26/2024 18:15:23 Renewal of prescription 538782203 Z76.0 Long-term drug therapy 961352486 Z79.899 Pain of to es of bilateral feet 6912910055 8637007 M79.674 M79.675 03784 Sintia Palma NP, A [facility], [place] [address] 6 03/11/2024 16:43:54 03/11/2024 18:13:14 Renewal of prescription 065810038 Z76.0 Long-term drug therapy 639001116 Z79.899 53337 Sintia Palma NP, A [facility], [address] [address] 6 03/25/2024 16:44:37 04/21/2024 15:41:18 Renewal of prescription 726759396 Z76.0 Long-term drug therapy 527156019 Z79.899 51227 Sintia Palma NP, A [facility], [place] [address] 6 04/08/2024 17:04:47 04/14/2024 16:28:43 Long-term drug therapy 131917809 Z79.899 Renewal of prescription 258026351 Z76.0 01112 Sintia Palma NP, A [facility], [place] [address] 6 04/22/2024 11:59:42 04/22/2024 12:29:10 Renewal of prescription 229914604 Z76.0 Long-term drug therapy 165872649 Z79.899 82255 Sintia Palma NP, A [facility], [address] [address] 05/06/2024 18:12:40 05/07/2024 15:44:31 Renewal of prescription 502148033 Z76.0 Long-term drug therapy 705835913 Z79.899 78341 Sintia Palma NP, A [facility], [address] [address] 05/20/2024 16:08:10 05/20/2024 16:49:09 Renewal of prescription 848387519 Z76.0 Long-term drug therapy 642703768 Z79.899 19379 Sintia Palma NP, A [facility], [address] [address] 06/03/2024 18:14:31 06/03/2024 19:18:33 Renewal of prescription 091129812 Z76.0 Constipation 06573529 K5 9.00 Long-term drug therapy 002005997 Z79.899 Benign ess ential hypertension 4124809 I10 13027 Sintia Palma NP, A [facility], [place] [address] 6 06/17/2024 15:20:56 06/17/2024 17:10:16 Renewal of prescription 804638643 Z76.0 Long-term drug therapy 073662858 Z79.899 Neck pain 61159847 M54.2 63303 Sintia Palma NP, A [facility], [place] [address] 6 07/01/2024 18:07:28 07/01/2024 18:58:12 Renewal of prescription 350115244 Z76.0 Long-term drug therapy 582885341 Z79.899 71184 Sintia Palma NP, A [facility], [place] [address] 6 07/15/2024 15:50:32 07/15/2024 16:30:53 Renewal of prescription 877362649 Z76.0 Long-term drug therapy 013118024 Z79.899 65452 Sintia Palma NP, A [facility], [place] [address] 6 07/29/2024 17:31:16 07/29/2024 17:57:05 Renewal of prescription 284913931 Z76.0 Long-term drug therapy 144840452 Z79.899 Constipation 72553793 K5 9.00 22764 Sintia Palma NP, A [facility], [place] [address] 6 08/12/2024 16:16:26 08/12/2024 17:15:44 Renewal of prescription 742741523 Z76.0 Long-term drug therapy 716900147 Z79.899 11785 Sintia Palma NP, A [facility], [place] [address] 6 08/26/2024 17:41:38 08/26/2024 18:07:11 Renewal of prescription 955834084 Z76.0 Long-term drug therapy 493636641 Z79.899 54164 Sintia Palma NP, A [facility], [place] [address] 6 09/15/2024 12:54:43 09/15/2024 14:24:06 Renewal of prescription 090808563 Z76.0 Long-term drug therapy 026620883 Z79.899 69179 Sintia Palma NP, A [facility], [place] [address] 6 09/29/2024 16:09:23 09/29/2024 17:05:22 Renewal of prescription 890411258 Z76.0 Long-term drug therapy 986692318 Z79.899 Low back pain 634201698 M54.50 Acute righ t otitis media 514271976 H66.91 96085 Sintia Palma NP, A [facility], [place] [address] 6 10/13/2024 14:49:50 10/13/2024 15:37:17 Renewal of prescription 805342134 Z76.0 Long-term drug therapy 442082407 Z79.899 [facility] 833247465 R11.0 65153 Sintia Palma NP, A [facility], [place] [address] 11/04/2024 16:15:41 11/04/2024 17:16:55 Renewal of prescription 760323533 Z76.0 Long-term drug therapy 494869265 Z79.899 [facility] 56315952 R25.2 [facility] 95995156 K5 9.00 93863 Sintia Palma NP, A [facility], [place] [address] 6 11/24/2024 15:41:19 11/24/2024 16:55:55 Renewal of prescription 235770548 Z76.0 Long-term drug therapy 841375528 Z79.899 Benign ess ential hypertension 7020638 I10 Low back pain 178928471 M54.50 Contact dermatitis 91019 004 L25.9 55405 Sintia Palma NP, A [facility], [place] [address] 6 12/16/2024 16:59:17 12/16/2024 21:04:06 Renewal of prescription 083319244 Z76.0 Long-term drug therapy 682544480 Z79.899 Contact dermatitis 59620 004 L25.9 Upper resp iratory infection 93426918 J06.9 69697 Sintia Palma NP, A [facility], [place] [address] 6 12/30/2024 16:24:45 12/30/2024 18:00:40 Renewal of prescription 571366250 Z76.0 Long-term drug therapy 024632816 Z79.899 83855 Sintia Palma NP, A [facility], [place] [address] 6 01/13/2025 16:58:38 01/13/2025 19:16:26 Renewal of prescription 884742237 Z76.0 Long-term drug therapy 902150380 Z79.899 39016 Sintia Palma NP, A [facility], [place] [address] 6 01/27/2025 19:21:13 01/28/2025 16:08:59 Long-term drug therapy 188694068 Z79.899 Renewal of prescription 818281902 Z76.0 84338 Sintia Palma NP, A [facility], [place] [address] 6 02/10/2025 17:02:20 02/10/2025 17:57:48 Renewal of prescription 218134680 Z76.0 Long-term drug therapy 032327565 Z79.899 80952 Sintia Palma NP, A [facility], [place] [address] 6 02/24/2025 16:57:20 02/24/2025 17:38:52 Renewal of prescription 158822789 Z76.0 Long-term drug therapy 439833036 Z79.899 25385 Sintia Palma NP, A [facility], [place] [address] 6 03/10/2025 17:02:02 03/10/2025 22:01:47 Renewal of prescription 595672280 Z76.0 Long-term drug therapy 327031430 Z79.899 Benign ess ential hypertension 6082822 I10 74007 Sintia Palma NP, A [facility], [place] [address] 6 03/25/2025 17:55:48 03/25/2025 18:30:30 Renewal of prescription 876792259 Z76.0 Long-term drug therapy 160304415 Z79.899 92306 Sintia Palma NP, A [facility], [place] [address] 6 04/12/2025 16:48:25 04/12/2025 18:57:06 Renewal of prescription 676468293 Z76.0 Long-term drug therapy 256773776 Z79.899 43539 Sintia Palma NP, A [facility], [place] [address] 6 04/21/2025 16:09:35 04/21/2025 17:28:45 Renewal of prescription 783520881 Z76.0 Long-term drug therapy 997118950 Z79.899 Neck pain 32244989 M54.2 23224 Nausea 894299708 R11.0 84345 Sintia Palma NP, A [facility], [place] [address] 6 05/05/2025 15:58:23 05/05/2025 18:09:33 Renewal of prescription 591599673 Z76.0 Long-term drug therapy 861221179 Z79.899 Nausea 569233144 R11.0 Constipation 18060395 K5 9.00 Lack of energy 862408119 R53.83 256574 Depressive disorder 3548 9007 F32.A 71805920 Abdominal pain 06988501 R10.9 48791355 58931 Sintia Palma NP, A [facility], [place] [address] 6 05/19/2025 16:43:04 05/19/2025 17:31:19 Renewal of prescription 826461760 Z76.0 Long-term drug therapy 973733367 Z79.899 Nausea 037074304 R11.0 Lack of energy 534348140 R53.83 540147 Acute abdominal pain 116 364745 R10.9 18933 31167 Sintia Palma NP, A [facility], [place] [address] 6 06/02/2025 17:03:44 06/02/2025 18:15:11 Renewal of prescription 995004311 Z76.0 Long-term drug therapy 702241818 Z79.899 Acute abdominal pain 116 454690 R10.9 56290 16890 Sintia Palma NP, A [facility], [place] [address] 6 06/16/2025 16:57:07 06/16/2025 17:53:00 Renewal of prescription 516945146 Z76.0 Long-term drug therapy 698447620 Z79.899 Acute abdominal pain 116 768326 R10.9 81350 Benign ess ential hypertension 5350956 I10 Depressive disorder 3548 9007 F32.A Subcutaneous nodule 9532 5000 R22.9 816422 Localized infection of skin AND/OR subcutaneous tissue 552444461 L08.9 292833 34991 Sintia Palma NP, A [facility], [address] 6 06/30/2025 17:05:01 07/01/2025 16:16:50 Renewal of prescription 142593252 Z76.0 Long-term drug therapy 101820092 Z79.899 Low back pain 964142890 M54.50 Nausea 314923588 R11.0 50116 Health Concerns Section Related Observation LastModified by Organization Detai ls LastModified Time None Recorded Concern Status LastModified by Organization Details LastModified Time None Recorded Advance Directives Directive N: Provided copy of [facility] advance directive Payers Insurance Date Sequence Insurance Name Policy Number Policy Woody Covered Member ID Woody Member ID Guarantor Name 04/29/2023 1 [employer] [place] Nick [place] [id number] Nick Vancouver 06/27/2025 1 [place] [id number] Nick Erika [id number] Nick [place] 04/05/2023 1 [place] [id number] Nick Erika [id number] Nick Vancouver Notes Date Note Type Note Provider Name and Address Organization Details Recorded Time 025 text/ht ml Addiction F/UReported by PatientHPIFor associated symptoms, patient reportswithdrawal symptoms,depression, andanxietybut reportsno hallucinations,no paranoia,no insomnia, andgood appetite(anxiety 11/16; depression /; restless, mild pain in legs). For quality, patient reportsdrug of choiceheroinandotheralcohol, benzodiazepines, thc. For severity, patient reportsuse since last visit none. For duration, patient reportsrelapse started n/a. For onset/timing, patient reportsfrequency ___andlast use 06/24/2020. For context, patient reportstriggers anxiety, hanging out with people who use drugs, seeing people use drugs. For alleviating factors, patient reportsattending meetings,sponsor,step work,rehabilitation program completed, andcurrent suboxone/subutex dose bup 12 mg/naloxone 3 mg(attended 4 aa meetings over the past week.he has sponsor, edgar avila and talks or text daily and meets twice over the past week. 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 For aggravating factors, patient reportsno new consequencesandno new cravings(03/18).Drug History Alcohol - 3 beers or glasses of wine three times a week, last use 04/02/2023. Previous alcohol use - Client reported drinking up to fifth a day with the last use 06/22/2020. He has been drinking since age 20. Attended 3 AA meetings over the past week.He has sponsorEdgar and talks or text daily and meets once weekly. Steps completed. 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 Counselor - Regi Wood, Appointment 5Attended 3 AA meetings over the past week.He has sponsor, Edgar Avila and talks or text daily and meets once weekly. Steps completed. 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 Counselor - Regi Wood, Appointment 5Client reported that he started smoking THC at age 11, with the last use around October 03, 2023 . Used -5 times a week He reported that he tore his meniscus and was prescribed opioids at age 14 and then became addicted at age 16. 34 year old white male presents for refill on buprenorphine/naloxone. Patient states he is still having problems with his eyesight. Client reported that his peripheral vision is not normal. He reported that his intraocular pressure was normal in right and left eye 20. He stopped THC and eyes started hurting. He restarted THC at a decreased amount. Living in an apartment in [place] and doing well. Client reported lack of energy and nausea. He reported lack of energy and desire to participate in activities. He is concerned about testosterone level. Sintia Palma NP, A [address] [place] [address], [id number], [facility], [facility] 05/05/2025 17:51:54 025 text/ht ml Addiction F/UReported by PatientHPIFor associated symptoms, patient reportswithdrawal symptoms,depression, andanxietybut reportsno hallucinations,no paranoia,no insomnia, andgood appetite(anxiety 3/10; depression 3/10; restless, mild pain in legs). For quality, patient reportsdrug of choiceheroinandotheralcohol, benzodiazepines, thc. For severity, patient reportsuse since last visit none. For duration, patient reportsrelapse started n/a. For onset/timing, patient reportsfrequency ___andlast use 06/24/2020. For context, patient reportstriggers anxiety, hanging out with people who use drugs, seeing people use drugs. For alleviating factors, patient reportsattending meetings,sponsor,step work,rehabilitation program completed, andcurrent suboxone/subutex dose bup 12 mg/naloxone 3 mg(attended 4 aa meetings over the past week.he has sponsor, edgar stinsonenter and talks or text daily and meets twice over the past week. 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 For aggravating factors, patient reportsno new consequencesandno new cravings.Drug History Alcohol - 3 beers or glasses of wine three times a week, last use 04/02/2023. Previous alcohol use - Client reported drinking up to fifth a day with the last use 06/22/2020. He has been drinking since age 20. Attended 3 AA meetings over the past week.He has sponsor, Edgar Avila and talks or text daily and meets once weekly. Steps completed. Counselor - Regi Wood, Appointment 5Attended 3 AA meetings over the past week.He has sponsor, Edgar Avila and talks or text daily and meets once weekly. Steps completed. 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 Counselor - Regi Wood, Appointment 5Client reported that he started smoking THC at age 11, with the last use around October 03, 2023 . Used -5 times a week He reported that he tore his meniscus and was prescribed opioids at age 14 and then became addicted at age 16.UDS confirmation urine to be sent to lab. Educational materials given to patient related to BUP/NAL. Patient verbalized understanding of education provided and agrees with the current treatment plan. 35 year old white male presents for refill on buprenorphine/naloxone. Patient states he is still having problems with his eyesight. Client reported that his peripheral vision is not normal. He reported that his intraocular pressure was normal in right and left eye 20. He stopped THC and eyes started hurting. He restarted THC at a decreased amount. At this time the pressure is good. He is working on quitting Living in an apartment in [place] and doing well. Client reported lack of energy and nausea. He reported lack of energy and desire to participate in activities. He is concerned about testosterone level. Patient states he has had abdominal pain intermittently with nausea. Lipase 64.90 will refer for an Ultrasound of the Gallbladder at [facility] [facility] [place] Rosi Saucedo [address], [place], [id number], [facility] - [facility], [facility] 05/19/2025 17:10:26 025 text/ht ml Addiction F/UReported by PatientHPIFor associated symptoms, patient reportsdepressionandanxietybut reportsno withdrawal symptoms,no hallucinations,no paranoia,no insomnia, andgood appetite(anxiety 5-6/10; depression 3/10; restless, mild pain in legs). For quality, patient reportsdrug of choiceheroinandotheralcohol, benzodiazepines, thc. For severity, patient reportsuse since last visit none. For duration, patient reportsrelapse started n/a. For onset/timing, patient reportsfrequency ___andlast use 06/24/2020. For context, patient reportstriggers anxiety, hanging out with people who use drugs, seeing people use drugs. For alleviating factors, patient reportsattending meetings,sponsor,step work,rehabilitation program completed, andcurrent suboxone/subutex dose bup 12 mg/naloxone 3 mg(attended 4 aa meetings over the past week.he has sponsor, edgar avila and talks or text daily and meets twice over the past 2 weeks. 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 For aggravating factors, patient reportsno new consequencesandno new cravings.Drug History Alcohol - 3 beers or glasses of wine three times a week, last use 04/02/2023. Previous alcohol use - Client reported drinking up to fifth a day with the last use 06/22/2020. He has been drinking since age 20. Attended 3 AA meetings over the past week.He has sponsor, Edgar Avila and talks or text daily and meets once weekly. Steps completed. Counselor - Regi Wood, Appointment 04/15/2025ttended 3 AA meetings over the past week.He has sponsor, Edgar Avila and talks or text daily and meets once weekly. Steps completed. 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 Counselor - Regi Wood, Appointment 04/15/2025lient reported that he started smoking THC at age 11, with the last use around October 03, 2023 . Used -5 times a week He reported that he tore his meniscus and was prescribed opioids at age 14 and then became addicted at age 16.UDS confirmation urine to be sent to lab. Educational materials given to patient related to BUP/NAL. Patient verbalized understanding of education provided and agrees with the current treatment plan. 35 year old white male presents for refill on buprenorphine/naloxone. Patient states he is still having problems with his eyesight. Client reported that his peripheral vision is not normal. He reported that his intraocular pressure was normal in right and left eye 20. He stopped THC and eyes started hurting. He restarted THC at a decreased amount. At this time the pressure is good. Client stated that he used THC on 06/01/2025 that was laced with MDMA. He did not know that that the THC was laced with MDMA until his heart was racing. He is negative for MDMA, but is positive for amphetamine. Living in an apartment in [place] and doing well. Client reported energy level is better and wellbutrin has not been as effective as he expected. Decrease in days that he had nausea. He is concerned about testosterone level. Patient states he has had abdominal pain intermittently with nausea. Lipase 64.90 will refer for an Ultrasound of the Gallbladder at [facility] in [place]. Sintia Palma NP, A [address] [place] [address], [phone], [facility], [facility] 06/02/2025 18:14:32 025 text/ht ml Addiction F/UReported by PatientHPIFor associated symptoms, patient reportsdepressionandanxietybut reportsno withdrawal symptoms,no hallucinations,no paranoia,no insomnia, andgood appetite(anxiety 3/10; depression 3/10; restless, mild pain in legs). For quality, patient reportsdrug of choiceheroinandotheralcohol, benzodiazepines, thc. For severity, patient reportsuse since last visit none. For duration, patient reportsrelapse started n/a. For onset/timing, patient reportsfrequency ___andlast use 06/24/2020. For context, patient reportstriggers anxiety, hanging out with people who use drugs, seeing people use drugs. For alleviating factors, patient reportsattending meetings,sponsor,step work,rehabilitation program completed, andcurrent suboxone/subutex dose bup 12 mg/naloxone 3 mg(attended 4 aa meetings over the past week.he has sponsor, edgar avila and talks or text daily and meets twice over the past 2 weeks. 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 For aggravating factors, patient reportsno new consequencesandno new cravings.Drug History Alcohol - 3 beers or glasses of wine three times a week, last use 04/02/2023. Previous alcohol use - Client reported drinking up to fifth a day with the last use 06/22/2020. He has been drinking since age 20. Attended 3 AA meetings over the past week.He has sponsor, dEgar Avila and talks or text daily and meets once weekly. Steps completed. Counselor - Regi Wood, Appointment 5Attended 3 AA meetings over the past week.He has sponsor, Edgar Avila and talks or text daily and meets once weekly. Steps completed. 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 Counselor - Regi Wood, Appointment 5Client reported that he started smoking THC at age 11, with the last use around October 03, 2023 . Used -5 times a week He reported that he tore his meniscus and was prescribed opioids at age 14 and then became addicted at age 16.UDS confirmation urine to be sent to lab. Educational materials given to patient related to BUP/NAL. Patient verbalized understanding of education provided and agrees with the current treatment plan. 35 year old white male presents for refill on buprenorphine/naloxone. Patient states he is still having problems with his eyesight. Client reported that his peripheral vision is not normal. He reported that his intraocular pressure was normal in right and left eye 20. He stopped THC and eyes started hurting. At this time the pressure is good. Client stated that he used THC, 0.5 joint 5 days a week. Living in an apartment in [place] and doing well. Anxiety and depression has decreased. He sated Wellbutrin has been effective. Nausea Patient states he has had abdominal pain intermittently with nausea. Lipase 64.90 will refer for an Ultrasound of the Gallbladder at [facility] in [place]. Complaining of pain in elbows fredy, worse on the left, which has become chronic. He would like to go to PT, but needs to wait until financially more responsible. He plans to see a chiropractor. Complaining of a small abscess on the lateral side of upper chest. No drainage. Not Available Not Available Not Available 025 text/ht ml Addiction F/UReported by PatientHPIFor associated symptoms, patient reportsdepressionandanxietybut reportsno withdrawal symptoms,no hallucinations,no paranoia,no insomnia, andgood appetite(anxiety 3/10; depression 3/10; restless, mild pain in legs). For quality, patient reportsdrug of choiceheroinandotheralcohol, benzodiazepines, thc. For severity, patient reportsuse since last visit none. For duration, patient reportsrelapse started n/a. For onset/timing, patient reportsfrequency ___andlast use 06/24/2020. For context, patient reportstriggers anxiety, hanging out with people who use drugs, seeing people use drugs. For alleviating factors, patient reportsattending meetings,sponsor,step work,rehabilitation program completed, andcurrent suboxone/subutex dose bup 12 mg/naloxone 3 mg(attended 4 aa meetings over the past week.he has sponsor, edgar avila and talks or text daily and meets twice over the past 2 weeks. 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 For aggravating factors, patient reportsno new consequencesandno new cravings.Drug History Alcohol - 3 beers or glasses of wine three times a week, last use 04/02/2023. Previous alcohol use - Client reported drinking up to fifth a day with the last use 06/22/2020. He has been drinking since age 20. Attended 3 AA meetings over the past week.He has sponsor, Edgar Avila and talks or text daily and meets once weekly. Steps completed. Counselor - Regi Wood, Appointment 5Attended 3 AA meetings over the past week.He has sponsor, Edgar Avila and talks or text daily and meets once weekly. Steps completed. 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 Counselor - Regi Wodo, Appointment 5Client reported that he started smoking THC at age 11, with the last use around October 03, 2023 . Used -5 times a week He reported that he tore his meniscus and was prescribed opioids at age 14 and then became addicted at age 16.UDS confirmation urine to be sent to lab. Educational materials given to patient related to BUP/NAL. Patient verbalized understanding of education provided and agrees with the current treatment plan. 35 year old white male presents for refill on buprenorphine/naloxone. Patient states he is still having problems with his eyesight. Client reported that his peripheral vision is not normal. He reported that his intraocular pressure was normal in right and left eye 20. He stopped THC and eyes started hurting. At this time the pressure is good. Client stated that he used THC, 0.5 joint 5 days a week.Seen the eye doctor last month. Living in an apartment in [place] and doing well. Anxiety 3/10 and depression 3/10 has decreased. He sated Wellbutrin has been effective. Still nauseated sick three times this week. Patient states he has had abdominal pain intermittently with nausea. Lipase 64.90 will refer for an Ultrasound of the Gallbladder at [facility] in [place]. Complaining of pain in elbows fredy, worse on the left, which has become chronic. He would like to go to PT, but needs to wait until financially more responsible. He plans to see a chiropractor. Dr. Mendez Complaining of a small abscess on the lateral side of upper chest. He will complete antibiotic today. Rosi Saucedo [address], [place], [id number], [facility] - [facility], [facility] 06/30/2025 17:26:42
--- OUTSIDE RECORDS SUMMARY | 2025-07-09 15:45 | XMS_ITS | Continuity of Care Document ---
Author Organization [place] - [facility], [facility] Address [address] [place] [id number] Assessment Encounter Date Assessment Date Assessment LastModified by Organization Details LastModified Time 06/02/2025 06/02/2025 Patient presented for medication refill. Patient tolerating medication well at current dose without adverse effects. Refilled as below. Discussed plan with patient, who expressed understanding . Follow up as noted below. [email or web address] Not available 06/02/2025 18:02:36 Plan of Treatment Reminders Order Date Submit Date Provider Last Modified By Organization Details Last Modified Time Details Appointments ESTABLISH ED PATIENT 30 2024 04:30P Nelda PALMA NP Not available Not available Not available Lab drug screen, urine [id number], [address] [place] [address], [id number], 06/02/2025 18:12:02 drug screen, urine 2024 025 [place] [address] [facility], [address] [place], [address], 06/02/2025 18:14:10 Referral None recorded. Procedures None recorded. Surgeries None recorded. Imaging US, abdomen, complete 2024 025 [facility] ([facility]), [address], [place], [address], 06/09/2025 04:39:55 Medication Orders buprenorp astrid 8 mg-naloxo ne 2 mg sublingua l film 2024 025 [facility], [address], [address], 06/23/2025 05:01:45 Patient TargetsNo targets recorded. Patient Instructions Encounter Date Encounter Id Patient Instructions Last Modified By Organization Details Last Modified Time 06/02/2025 [id number] Discussed the benefits and risks of treatment [...] the past 2 weeks. Steps completed. 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 Counselor - Isabel Wood, Appointment 06/07/2025 Plan: bup 16 mg/naloxone [...] written literature on bup/naloxone. at previous visit. [email or web address] Not available 06/02/2025 18:10:14 Reason for Referral None Reported. Results Created Date Observation Date Name Description Value Unit Range Abnormal Flag Note LastModifiedBy Organization Detail LastModifiedTime 05/05/2005/05/2025 drug scree n, urine Amphetamines : negati ve Not Available [facility], [facility] [address] [place], [address], 05/05/2025 16:01:23 05/05/2005/05/2025 drug scree n, urine Cannabinoids : positi ve Not Available [facility], [address], [address], 05/05/2025 16:01:23 05/05/20 25 05/05/2025 drug scree n, urine Cocaine: negati ve Not Available [facility], [address], [address], 05/05/2025 16:01:23 05/05/20 25 05/05/2025 drug scree n, urine Opiates: negati ve Not Available [facility], [address], [address], 05/05/2025 16:01:23 05/05/20 25 05/05/2025 drug scree n, urine Oxycodone negati ve Not Available [facility], [address], [address], 05/05/2025 16:01:23 05/05/20 25 05/05/2025 drug scree n, urine Barbiturates : negati ve Not Available [facility], [address], [address], 05/05/2025 16:01:23 05/05/20 25 05/05/2025 drug scree n, urine Benzodiazepi edith: negati ve Not Available [facility], [address], [address], 05/05/2025 16:01:23 05/05/20 25 05/05/2025 drug scree n, urine Ethanol: negati ve Not Available [facility], [address], [address], 05/05/2025 16:01:23 05/05/20 25 05/05/2025 drug scree n, urine Fentanyl negati ve Not Available [facility], [address], [address], 05/05/2025 16:01:23 05/05/20 25 05/05/2025 drug scree n, urine Methadone negati ve Not Available [facility], [address], [address], 05/05/2025 16:01:23 05/05/20 25 05/05/2025 drug scree n, urine Buprenoprhin e positi ve Not Available [facility], [address], [address], 05/05/2025 16:01:23 05/05/20 25 05/05/2025 drug scree n, urine MDMA negati ve Not Available [facility], [address], [address], 05/05/2025 16:01:23 05/19/20 25 05/19/2025 drug scree n, urine Amphetamines : negati ve Not Available [facility], [address], [address], 05/19/2025 16:49:48 05/19/20 25 05/19/2025 drug scree n, urine Cannabinoids : positi ve Not Available [facility], [address], [address], 05/19/2025 16:49:48 05/19/20 25 05/19/2025 drug scree n, urine Cocaine: negati ve Not Available [facility], [address], [address], 05/19/2025 16:49:48 05/19/20 25 05/19/2025 drug scree n, urine Opiates: negati ve Not Available [facility], [address], [address], 05/19/2025 16:49:48 05/19/2005/19/2025 drug scree n, urine Oxycodone negati ve Not Available [facility], [address], [address], 05/19/2025 16:49:48 05/19/2005/19/2025 drug scree n, urine Barbiturates : negati ve Not Available [facility], [address], [address], 05/19/2025 16:49:48 05/19/2005/19/2025 drug scree n, urine Benzodiazepi edith: negati ve Not Available [facility], [address], [address], 05/19/2025 16:49:48 05/19/2005/19/2025 drug scree n, urine Ethanol: negati ve Not Available [facility], [address], [address], 05/19/2025 16:49:48 05/19/2005/19/2025 drug scree n, urine Fentanyl negati ve Not Available [facility], [address], [address], 05/19/2025 16:49:48 05/19/2005/19/2025 drug scree n, urine Methadone negati ve Not Available [facility], [address], [address], 05/19/2025 16:49:48 05/19/2005/19/2025 drug scree n, urine Buprenoprhin e positi ve Not Available [facility], [address], [address], 05/19/2025 16:49:48 05/19/20 25 05/19/2025 drug scree n, urine MDMA negati ve Not Available [facility], [address], [address], 05/19/2025 16:49:48 06/02/20 25 06/02/2025 drug scree n, urine Amphetamines : positi ve Not Available [facility], [address], [address], 06/02/2025 17:11:14 06/02/20 25 06/02/2025 drug scree n, urine Cannabinoids : positi ve Not Available [facility], [address], [address], 06/02/2025 17:11:14 06/02/20 25 06/02/2025 drug scree n, urine Cocaine: negati ve Not Available [facility], [address], [address], 06/02/2025 17:11:14 06/02/20 25 06/02/2025 drug scree n, urine Opiates: negati ve Not Available [facility], [address], [address], 06/02/2025 17:11:14 06/02/20 25 06/02/2025 drug scree n, urine Oxycodone negati ve Not Available [facility], [address], [address], 06/02/2025 17:11:14 06/02/20 25 06/02/2025 drug scree n, urine Barbiturates : negati ve Not Available [facility], [address], [address], 06/02/2025 17:11:14 06/02/20 25 06/02/2025 drug scree n, urine Benzodiazepi edith: negati ve Not Available [facility], [address], [address], 06/02/2025 17:11:14 06/02/20 25 06/02/2025 drug scree n, urine Ethanol: negati ve Not Available [facility], [address], [address], 06/02/2025 17:11:14 06/02/20 25 06/02/2025 drug scree n, urine Fentanyl negati ve Not Available [facility], [address], [address], 06/02/2025 17:11:14 06/02/20 25 06/02/2025 drug scree n, urine Methadone negati ve Not Available [facility], [address], [address], 06/02/2025 17:11:14 06/02/20 25 06/02/2025 drug scree n, urine Buprenoprhin e positi ve Not Available [facility], [address], [address], 06/02/2025 17:11:14 06/02/20 25 06/02/2025 drug scree n, urine MDMA negati ve Not Available [facility], [address], [address], 06/02/2025 17:11:14 Result Notes None recorded. Problems Name Problem SNOMED Code Status Onset Date Resolution Date Notes Provider Name and Address Organization Details Recorded Time Long-term drug therapy Active 2019 Sintia Palma NP, A [address] [place] [address], [address], [place] - [facility], [facility] 0 12:26:02 Health maintenance alteration 74463243 Active 2019 Sintia Palma NP, A [address], [place], [address], [facility], [facility] 0 12:26:07 Medical examination for suspected condition Active 2019 Sintia Palma NP, A [address], [place], [address], [facility], [facility] 0 14:29:00 Generalized anxiety disorder 74368898 Active 2020 Sintia Palma NP, A [address], [place], [address], [facility], [facility] 1 13:57:46 Muscle spasm of cervical muscle of neck 149892102167 Active 2020 Sintia Palma NP, A [address], [place], [address], [facility], [facility] 1 15:02:49 Pain of shoulder region 72422890 Active 2020 Sintia Palma NP, A [address], [place], [address], [facility], [facility] 1 17:04:29 Pain in left foot 7967523440416 07 Active 2020 Sintia Palma NP, A [address], [place], [address], [facility], [facility] 1 16:16:30 Numbness of hand 724452505 Active 2020 Sintia Palma NP, A [address], [place], [address], [facility], [facility] 1 14:52:03 Unprotected sexual intercourse 5104462 Active 2020 Sintia Palma NP, A [address], [place], [address], [facility], [facility] 1 14:58:50 Chronic hepatitis C 668609680 Active 2020 Sintia Palma NP, A [address], [place], [address], [facility], [facility] 1 15:00:42 Neck pain 19364503 Active 2020 Sintia Palma NP, A [address], [place], [address], [facility], [facility] 5 17:33:27 Contact dermatitis 89579256 Active 2020 Sintia Palma NP, A [address], [place], [address], [facility], [facility] 1 16:27:11 Viral screening Active 2020 Sintia Palma NP, A [address], [place], [address], [facility], [facility] 1 16:29:05 Muscle tension pain 590838793 Active 2020 Sintia Palma NP, A [address], [place], [address], [facility], [facility] 1 16:31:15 Irregular heart beat 197701799 Active 2020 Sintia Palma NP, A [address], [place], [address], [facility], [facility] 1 16:06:26 Low back pain 777993079 Active 2021 Sintia Palma NP, A [address], [place], [address], [facility], [facility] 2 15:11:06 Otalgia 22888660 Active 2021 Snitia Palma NP, A [address], [place], [address], [facility], [facility] 2 18:03:25 Muscle pain 32811355 Active 2021 Sintia Palma NP, A [address], [place], [address], [facility], [facility] 2 17:45:14 Acute right otitis media 988462632 Active 2021 Sintia Palma NP, A [address], [place], [address], [facility], [facility] 2 18:07:58 Benign essential hypertensio n 0208362 Active 2021 Sintia Palma NP, A [address], [place], [address], [facility], [facility] 2 17:47:25 Excessive cerumen in ear canal 839175829 Active 2021 Sintia Palma NP, A [address], [place], [address], [facility], [facility] 2 17:12:47 Infection of skin and/or subcutaneou s tissue 44313568 Active 2021 Sintia Palma NP, A [address], [place], [address], [facility], [facility] 2 17:13:53 Fatigue 36823771 Active 2021 Sintia Palma NP, A [address], [place], [address], [facility], [facility] 2 17:18:07 Pruritic rash 58945859 Active 2022 Sintia Palma NP, A [address], [place], [address], [facility], [facility] 3 16:33:04 Tinea pedis 7021614 Active 2022 Sintia Palma NP, A [address], [place], [address], [facility], [facility] 3 16:35:38 Erectile dysfunction 356757758 Active 2022 Sintia Palma NP, A [address], [place], [address], [facility], [facility] 3 16:59:55 Dermatophyt osis 48857259 Active 2022 Sintia Palma NP, A [address], [place], [address], [facility] - [facility], [facility] 3 16:48:08 Dysphagia 22441864 Active 2022 Sintia Palma NP, A [address], [place], [address], [facility], [facility] 3 15:11:54 Nausea 666692039 Active 2023 Sintia Palma NP, A [address], [place], [address], [facility], [facility] 5 18:03:43 Venereal disease screening Active 2023 Sintia Palma NP, A [address], [place], [address], [facility], [facility] 4 17:57:37 Screening for cardiovascu lar system disease Active 2023 Sintia Palma NP, A [address], [place], [address], [facility], [facility] 4 17:57:41 Gastroesoph ageal reflux disease 401427995 Active 2023 Sintia Palma NP, A [address], [place], [address], [facility], [facility] 4 17:57:46 Renewal of prescriptio n Active 2023 Sintia Palma NP, A [address], [place], [address], [facility], [facility] 4 17:57:54 Pain of left shoulder joint 8442666652543 9109 Active 2023 Sintia Palma NP, A [address], [place], [address], [facility], [facility] 4 17:27:26 Pain of ear 757467868 Active 2023 Sintia Palma NP, A [address], [place], [address], [facility], [facility] 4 16:16:58 Seasonal allergy 683627030 Active 2023 Sintia Palma NP, A [address], [place], [address], [facility], [facility] 4 17:16:09 Constipatio n 26404571 Active 2023 Sintia Palma NP, A [address], [place], [address], [facility], [facility] 4 16:46:28 Spasm 46977389 Active 2024 Sintia Palma NP, A [address], [place], [address], [facility], [facility] 5 16:10:06 Lack of energy 541768299 Active 2024 Sintia Palma NP, A [address], [place], [address], [facility], [facility] 5 17:39:20 Depressive disorder 43142897 Active 2024 Sintia Palma NP, A [address], [place], [address], [facility], [facility] 5 17:41:07 Acute abdominal pain 975035563 Active 2024 Sintia Palma NP, A [address], [place], [address], [facility], [facility] 5 17:30:29 Problem Notes None recorded. Procedures Surgical History Date Name Laterality Status Provider Name and Address Organization Details Recorded Time arthroscopy completed Sintia Palma NP, A [address] [facility], [place], [address], [facility] - [facility], [facility] 08/24/2020 12:16:21 Imaging Results None recorded. Procedure [...] cm 97 /min 97.6 [degF] 31.2 kg/m2 95816.0 5 g 99 % 99 % 137/84 mm[Hg] xochitl [facility], [facility] 5 17:04:45 Social History Question Answer Notes LastModified by Organizat ion Details LastModified Time Tobacco Smoking Status Current Every Day Smoker Sintia Palma NP, A [address] [place] [address], [address], [facility], [facility] 08/24/2020 12:14:17 Do You Have An Advance Directive? No Provided Copy Of [facility] Advance Directive [email or web address] Information not available 03/05/2023 What Is Your Level Of Caffeine Consumption? Moderate [email or web address] Information not available 10/14/2020 How Much Tobacco Do You Chew? None [email or web address] Information not available 10/14/2020 What Type Of Diet Are You Following? REGULAR [email or web address] Information not available 10/14/2020 Education 10 [email or web address] Information no t available 10/14/2020 Swimming/divi ng Yes [email or web address] Information not available 10/14/2020 Are There Any Guns Present In Your Home? No [email or web address] Information not available 10/14/2020 Hard Of Hearing Or Deaf In One Or Both Ears? No [email or web address] Information not available 10/14/2020 Legally Blind In One Or Both Eyes? No Information not available 10/14/2020 Live Alone Or With Others? With Others Information not available 10/14/2020 How Many Children Do You Have? 1 [email or web address] Information not available 10/14/2020 Seat Belts Used Routinely Yes [email or web address] Information not available 10/14/2020 Are You Sexually Active? No [email or web address] Information not available 10/14/2020 Smoke Alarm In Home Yes [email or web address] Information not available 10/14/2020 How Much Tobacco Do You Smoke? 0.25 PPD [email or web address] Information not available 10/14/2020 Do You Use Sunscreen Routinely? No Information not available 10/14/2020 How Many Years Have You Smoked Tobacco? 20 [email or web address] Information not available 09/26/2021 Sex: Unknown Functional Status Question Answer Note LastModified by Organizat ion Details LastModified Time What is your level of alcohol consumption? None [email or web address] Information not available 10/14/2020 Are you currently employed? Yes [email or web address] Information not available 10/14/2020 Are you able to care for yourself independently? 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 Moderate [email or web address] Information not available 10/14/2020 Mental Status None recorded. Family History Relationship Description Onset Age of this Age Resolved Age Notes LastModified by Organization Details LastModified Time Maternal Grandfather Myocardial infarction [email or web address] Not available 10/14 16:36:15 Maternal Grandfather Diabetes mellitus [email or web address] Not available 2020 16:36:45 Mother Diabetes mellitus [email or web address] Not available 2020 16:36:45 Mother Radial tunnel syndrome Not available 2020 16:37:11 Mother Hypertensive disorder [email or web address] Not available 2021 15:11:51 Mother Heart disease [email or web address] Not available 2023 17:30:42 Mother Lung mass [email or web address] Not availab le 02/12/2024 17:31:38 Brother Hypertensive disorder Not available 2021 15:11:30 Father Hypertensive disorder [email or web address] Not available 2021 15:11:41 Unspecified Relation Myocardial infarction Not available 02/11 17:31:05 Medical History Condition Response Liver Disease Y Muscle, Joint, or Bone Problems Y Mental Disorder Y Past Encounters Encounter ID Performer Location Encounter Start Date Encounter Closed Date Diagnosis/Indication Diagnosis SNOMED-CT Code Diagnosis ICD10 Code Diagnosis IMO Codes Diagnosis Note [id number] Sintia Palma NP, A [facility], [place] [address] 05/05/2025 15:58:23 05/05/2025 18:09:33 Renewal of prescription 061027536 Z76.0 Long-term drug therapy 812452638 Z79.899 Nausea 632882792 R11.0 Constipation 00086036 K5 9.00 Lack of energy 028267925 R53.83 947146 Depressive disorder 3548 9007 F32.A 05274900 Abdominal pain 09746174 R10.9 [id number] Sintia Palma NP, A [facility], [address] 6 05/19/2025 16:43:04 05/19/2025 17:31:19 Renewal of prescription 890112250 Z76.0 Long-term drug therapy 067865389 Z79.899 Nausea 770490560 R11.0 Lack of energy 495352219 R53.83 928709 Acute abdominal pain 116 309242 R10.9 [id number] Sintia Palma NP, A [facility], [place] [address] 06/02/2025 17:03:44 06/02/2025 18:15:11 Renewal of prescription 334423744 Z76.0 Long-term drug therapy 461152458 Z79.899 Acute abdominal pain 116 190687 R10.9 65911 Health Concerns Section Related Observation LastModified by Organization Detai ls LastModified Time None Recorded Concern Status LastModified by Organization Details LastModified Time None Recorded Payers Encounter Date Sequence Insurance Name Policy Number Policy Woody Covered Member ID Woody Member ID Guarantor Name 06/02/2025 1 [place] [id number] 2 Nick James [id number] Nick James Notes Date Note Type Note Provider Name and Address Organization Details Recorded Time 06/02/20 25 text/ht ml Addiction F/UReported by PatientHPIFor associated [...] over the past 2 weeks. 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 For aggravating factors, patient reportsno new consequencesandno new cravings.Drug History Alcohol - 3 beers or glasses of wine three times a week, last use 04/02/2023. Previous alcohol use - Client reported drinking up to fifth a day with the last use 06/22/2020. He has been drinking since age 20. Attended 3 AA meetings over the past week.He has sponsor, Edgar Melendezenter and talks or text daily and meets once weekly. Steps completed. Counselor - Isabel Wood, Appointment 5Attended 3 AA meetings over the past week.He has sponsor, Edgar Avila and talks or text daily and meets once weekly. Steps completed. 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 Counselor - Isabel Wood, Appointment 04/15/2025lient reported that he started [...] for amphetamine. Living in an apartment in [place] and doing well. Client reported energy level is better and wellbutrin has not been as effective as he expected. Decrease in days that he had nausea. He is concerned about testosterone level. Patient states he has had abdominal pain intermittently with nausea. Lipase 64.90 will refer for an Ultrasound of the Gallbladder at [facility] in [place]. Sintia Palma NP, A [address] [place] [address], [address], [facility] - [facility], [facility] 06/02/2025 18:14:32
--- OUTSIDE RECORDS SUMMARY | 2025-07-09 15:46 | XMS_ITS | Continuity of Care Document ---
Author Organization [place] - [facility], [facility] Address [address] [place] [id number] Assessment Encounter Date Assessment Date Assessment LastModified by Organization Details LastModified Time 06/30/2025 06/30/2025 Patient presented for medication refill. [...] available Lab drug screen, urine 2024 025 [facility], [address] [place] [address], [phone], 06/30/2025 17:24:00 Referral None recorded. Procedures None recorded. Surgeries None recorded. Imaging None recorded. Medication Orders ondansetr on 8 mg disintegr ating tablet [address] [facility], [address] [place], [address], 06/30/2025 17:24:08 diclofena c sodium 75 mg tablet,de layed release [address] [facility], [address] [place], [address], 06/30/2025 17:24:13 buprenorp astrid 8 mg-naloxo ne 2 mg sublingua l film 2024 025 [facility], [address], [address], 06/30/2025 17:24:09 Patient TargetsNo targets recorded. Patient Instructions Encounter Date Encounter Id Patient Instructions Last Modified By Organization Details Last Modified Time 06/30/2025 [id number] Discussed the benefits and risks of treatment [...] Abnormal Flag Note LastModifiedBy Organization Detail LastModifiedTime 06/02/20 25 06/02/2025 drug scree n, urine Amphetamines : positi ve Not Available [facility] [address] [place], [address], 06/02/2025 17:11:14 06/02/20 25 06/02/2025 drug scree n, urine Cannabinoids : positi ve Not Available [facility] [address] [place], [address], 06/02/2025 17:11:14 06/02/20 25 06/02/2025 drug scree n, urine Cocaine: negati ve Not Available [facility], [address], [address], 06/02/2025 17:11:14 06/02/20 25 06/02/2025 drug scree n, urine Opiates: negati ve Not Available [facility], [address], [address], 06/02/2025 17:11:14 06/02/20 25 06/02/2025 drug scree n, urine Oxycodone negati ve Not Available [facility], [address], [address], 06/02/2025 17:11:14 06/02/20 25 06/02/2025 drug scree n, urine Barbiturates : negati ve Not Available [facility], [address], [address], 06/02/2025 17:11:14 06/02/20 25 06/02/2025 drug scree n, urine Benzodiazepi edith: negati ve Not Available [facility], [address], [address], 06/02/2025 17:11:14 06/02/20 25 06/02/2025 drug scree n, urine Ethanol: negati ve Not Available [facility], [address], [address], 06/02/2025 17:11:14 06/02/20 25 06/02/2025 drug scree n, urine Fentanyl negati ve Not Available [facility], [address], [address], 06/02/2025 17:11:14 06/02/20 25 06/02/2025 drug scree n, urine Methadone negati ve Not Available [facility], [address], [address], 06/02/2025 17:11:14 06/02/20 25 06/02/2025 drug scree n, urine Buprenoprhin e positi ve Not Available [facility], [address], [address], 06/02/2025 17:11:14 06/02/20 25 06/02/2025 drug scree n, urine MDMA negati ve Not Available [facility], [address], [address], 06/02/2025 17:11:14 06/30/20 25 06/30/2025 drug scree n, urine Amphetamines : negati ve Not Available [facility], [address], [address], 06/30/2025 17:06:43 06/30/2006/30/2025 drug scree n, urine Cannabinoids : positi ve Not Available [facility], [address], [address], 06/30/2025 17:06:43 06/30/20 25 06/30/2025 drug scree n, urine Cocaine: negati ve Not Available [facility], [address], [address], 06/30/2025 17:06:43 06/30/2006/30/2025 drug scree n, urine Opiates: negati ve Not Available [facility], [address], [address], 06/30/2025 17:06:43 06/30/2006/30/2025 drug scree n, urine Oxycodone negati ve Not Available [facility], [address], [address], 06/30/2025 17:06:43 06/30/2006/30/2025 drug scree n, urine Barbiturates : negati ve Not Available [facility], [address], [address], 06/30/2025 17:06:43 06/30/2006/30/2025 drug scree n, urine Benzodiazepi edith: negati ve Not Available [facility], [address], [address], 06/30/2025 17:06:43 06/30/2006/30/2025 drug scree n, urine Ethanol: negati ve Not Available [facility], [address], [address], 06/30/2025 17:06:43 06/30/2006/30/2025 drug scree n, urine Fentanyl negati ve Not Available [facility], [address], [address], 06/30/2025 17:06:43 06/30/2006/30/2025 drug scree n, urine Methadone negati ve Not Available [facility], [address], [address], 06/30/2025 17:06:43 06/30/2006/30/2025 drug scree n, urine Buprenoprhin e positi ve Not Available [facility], [address], [address], 06/30/2025 17:06:43 06/30/2006/30/2025 drug scree n, urine MDMA negati ve Not Available [facility], [facility] [address] [facility], [place], [address], 06/30/2025 17:06:43 Result Notes None recorded. Problems Name Problem SNOMED Code Status Onset Date Resolution Date Notes Provider Name and Address Organization Details Recorded Time Long-term drug therapy Active 2019 Sintia Palma NP, A [address] [facility] [place] [place], [address], [facility] - [facility], [facility] 0 12:26:02 Health maintenance alteration 43037682 Active 2019 Sintia Palma NP, A [address] [facility], [place] [place], [address], [facility] - [facility], [facility] 0 12:26:07 Medical examination for suspected condition Active 2019 Sintia Palma NP, A [address] [facility], [place] [place], [address], [facility] - [facility], [facility] 0 14:29:00 Generalized anxiety disorder 52142983 Active 2020 Sintia Palma NP, A [address] [facility], [place] [place], [address], [facility] - [facility], [facility] 1 13:57:46 Muscle spasm of cervical muscle of neck 774458070654 Active 2020 Sintia Palma NP, A [address] [facility], [facility] [place], [address], [facility] - [facility], [facility] 1 15:02:49 Pain of shoulder region 15986821 Active 2020 Sintia Palma NP, A [address] [facility], [place], [address], [facility] - [facility], [facility] 1 17:04:29 Pain in left foot 5371367938026 07 Active 2020 Sintia Palma NP, A [address] [facility], [place], [address], [facility] - [facility], [facility] 1 16:16:30 Numbness of hand 284127554 Active 2020 Sintia Palma NP, A [address], [place], [address], [facility], [facility] 1 14:52:03 Unprotected sexual intercourse 9687144 Active 2020 Sintia Palma NP, A [address], [place], [address], [facility], [facility] 1 14:58:50 Chronic hepatitis C 074187145 Active 2020 iSntia Palma NP, A [address], [place], [address], [facility], [facility] 1 15:00:42 Neck pain 40636038 Active 2020 Sintia Palma NP, A [address], [place], [address], [facility], [facility] 5 17:33:27 Contact dermatitis 42676355 Active 2020 Sintia Palma NP, A [address], [place], [address], [facility], [facility] 1 16:27:11 Viral screening Active 2020 Sintia Palma NP, A [address], [place], [address], [facility], [facility] 1 16:29:05 Muscle tension pain 625822897 Active 2020 Sintia Palma NP, A [address], [place], [address], [facility], [facility] 1 16:31:15 Irregular heart beat 414059528 Active 2020 Sintia Palma NP, A [address], [place], [address], [facility], [facility] 1 16:06:26 Low back pain 726179712 Active 2021 Sintia Palma NP, A [address], [place], [address], [facility], [facility] 2 15:11:06 Otalgia 96043110 Active 2021 Sintia Palma NP, A [address], [place], [address], [facility], [facility] 2 18:03:25 Muscle pain 20066566 Active 2021 Sintia Palma NP, A [address], [place], [address], [facility], [facility] 2 17:45:14 Acute right otitis media 518852739 Active 2021 Sintia Palma NP, A [address], [place], [address], [facility], [facility] 2 18:07:58 Benign essential hypertensio n 6909357 Active 2021 Sintia Palma NP, A [address], [place], [address], [facility], [facility] 2 17:47:25 Excessive cerumen in ear canal 229438344 Active 2021 Sintia Palma NP, A [address], [place], [address], [facility], [facility] 2 17:12:47 Infection of skin and/or subcutaneou s tissue 10356851 Active 2021 Sintia Palma NP, A [address], [place], [address], [facility], [facility] 2 17:13:53 Fatigue 55449840 Active 2021 Sintia Palma NP, A [address], [place], [address], [facility], [facility] 2 17:18:07 Pruritic rash 61582473 Active 2022 Sintia Palma NP, A [address], [place], [address], [facility], [facility] 3 16:33:04 Tinea pedis 1198289 Active 2022 Sintia Palma NP, A [address], [place], [address], [facility], [facility] 3 16:35:38 Erectile dysfunction 456381298 Active 2022 Sintia Palma NP, A [address], [place], [address], [facility], [facility] 3 16:59:55 Dermatophyt osis 03854855 Active 2022 Sintia Palma NP, A [address], [place], [address], [facility], [facility] 3 16:48:08 Dysphagia 18674793 Active 2022 Sintia Palma NP, A [address], [place], [address], [facility], [facility] 3 15:11:54 Nausea 033220738 Active 2023 Sintia Palma NP, A [address], [place], [address], [facility], [facility] 5 18:03:43 Venereal disease screening Active 2023 iSntia Palma NP, A [address], [place], [address], [facility], [facility] 4 17:57:37 Screening for cardiovascu lar system disease Active 2023 Sintia Palma NP, A [address], [place], [address], [facility], [facility] 4 17:57:41 Gastroesoph ageal reflux disease 874695082 Active 2023 Sintia Palma NP, A [address], [place], [address], [facility] - [facility], [facility] 4 17:57:46 Renewal of prescriptio n Active 2023 Sintia Palma NP, A [address], [place], [address], [facility] - [facility], [facility] 4 17:57:54 Pain of left shoulder joint 4338401532788 9109 Active 2023 Sintia Palma NP, A [address], [place], [address], [facility], [facility] 4 17:27:26 Pain of ear 213870290 Active 2023 Sintia Palma NP, A [address], [place], [address], [facility], [facility] 4 16:16:58 Seasonal allergy 255913693 Active 2023 Sintia Palma NP, A [address], [place], [address], [facility], [facility] 4 17:16:09 Constipatio n 36875966 Active 2023 Sintia Palma NP, A [address], [place], [address], [facility], [facility] 4 16:46:28 Spasm 19846517 Active 2024 Sintia Palma NP, A [address], [place], [address], [facility], [facility] 5 16:10:06 Lack of energy 426864441 Active 2024 Sintia Palma NP, A [address], [place], [address], [facility], [facility] 5 17:39:20 Depressive disorder 73006803 Active 2024 Sintia Palma NP, A [address], [place], [address], [facility], [facility] 5 17:41:07 Acute abdominal pain 469454148 Active 2024 Sintia Palma NP, A [address], [place], [address], [facility], [facility] 5 17:30:29 Problem Notes None recorded. Procedures Surgical History Date Name Laterality Status Provider Name and Address Organization Details Recorded Time arthroscopy completed Sintia Palma NP, A [address], [place], [address], [facility], [facility] 08/24/2020 12:16:21 Imaging Results None [...] 5 167.64 cm 91 /min 31 kg/m2 42979.7 4 g 99 % 99 % xochitl [place] [facility], [facility] 17:06:38 Social History Question Answer Notes LastModified by Organizat ion Details LastModified Time Tobacco Smoking Status Current Every Day Smoker Sintia Palma NP, A [address] [place] [address], [address], [facility], [facility] 08/24/2020 12:14:17 Do You Have An Advance Directive? No Provided Copy Of [facility] Advance Directive Information not available 03/05/2023 What Is Your Level Of Caffeine Consumption? Moderate Information not available 10/14/2020 How Much Tobacco Do You Chew? None Information not available 10/14/2020 What Type Of Diet Are You Following? REGULAR [email or web address] Information not available 10/14/2020 Education 10 Information no t available 10/14/2020 Swimming/divi ng Yes [email or web address] Information not available 10/14/2020 Are There Any Guns Present In Your Home? No [email or web address] Information not available 10/14/2020 Hard Of Hearing Or Deaf In One Or Both Ears? No [email or web address] Information not available 10/14/2020 Legally Blind In One Or Both Eyes? No [email or web address] Information not available 10/14/2020 Live Alone Or With Others? With Others [email or web address] Information not available 10/14/2020 How Many Children Do You Have? 1 [email or web address] Information not available 10/14/2020 Seat Belts Used Routinely Yes [email or web address] Information not available 10/14/2020 Are You Sexually Active? No Information not available 10/14/2020 Smoke Alarm In Home Yes [email or web address] Information not available 10/14/2020 How Much Tobacco Do You Smoke? 0.25 PPD [email or web address] Information not available 10/14/2020 Do You Use Sunscreen Routinely? No [email or web address] Information not available 10/14/2020 How Many Years Have You Smoked Tobacco? 20 Information not available 09/26/2021 Sex: Unknown Functional Status Question Answer Note LastModified by Organizat ion Details LastModified Time What is your level of alcohol consumption? None [email or web address] Information not available 10/14/2020 Are you currently employed? Yes [email or web address] Information not available 10/14/2020 Are you able to care for yourself independently? 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 Moderate Information not available 10/14/2020 Mental Status None recorded. Family History Relationship Description Onset Age of this Age Resolved Age Notes LastModified by Organization Details LastModified Time Maternal Grandfather Myocardial infarction Not available 10/14 16:36:15 Maternal Grandfather Diabetes mellitus [email or web address] Not available 2020 16:36:45 Mother Diabetes mellitus [email or web address] Not available 2020 16:36:45 Mother Radial tunnel syndrome [email or web address] Not available 2020 16:37:11 Mother Hypertensive disorder [email or web address] Not available 2021 15:11:51 Mother Heart disease Not available 2023 17:30:42 Mother Lung mass [email or web address] Not availab le 02/12/2024 17:31:38 Brother Hypertensive disorder [email or web address] Not available 2021 15:11:30 Father Hypertensive disorder [email or web address] Not available 2021 15:11:41 Unspecified Relation Myocardial infarction [email or web address] Not available 02/11 17:31:05 Medical History Condition Response Liver Disease Y Muscle, Joint, or Bone Problems Y Mental Disorder Y Past Encounters Encounter ID Performer Location Encounter Start Date Encounter Closed Date Diagnosis/Indication Diagnosis SNOMED-CT Code Diagnosis ICD10 Code Diagnosis IMO Codes Diagnosis Note [id number] Sintia Palma NP, A [address] [address] 06/02/2025 17:03:44 06/02/2025 18:15:11 Renewal of prescription 623097439 Z76.0 Long-term drug therapy 439416470 Z79.899 Acute abdominal pain 116 053708 R10.9 06969 [id number] Sintia Palma NP, A [employer] [address] 06/16/2025 16:57:07 06/16/2025 17:53:00 Renewal of prescription 156676884 Z76.0 Long-term drug therapy 555189519 Z79.899 Acute abdominal pain 116 878492 R10.9 56916 Benign ess ential hypertension 8822989 I10 Depressive disorder 3548 9007 F32.A Subcutaneous nodule 9532 5000 R22.9 516108 Localized infection of skin AND/OR subcutaneous tissue 890122644 L08.9 021686 [id number] Sintia Palma NP, A [facility], [facility] [address] [facility] [place] [address] 06/30/2025 17:05:01 07/01/2025 16:16:50 Renewal of prescription 367629996 Z76.0 Long-term drug therapy 042219380 Z79.899 Low back pain 064624520 M54.50 Nausea 073522105 R11.0 63926 Health Concerns Section Related Observation LastModified by Organization Detai ls LastModified Time None Recorded Concern Status LastModified by Organization Details LastModified Time None Recorded Payers Encounter Date Sequence Insurance Name Policy Number Policy Woody Covered Member ID Woody Member ID Guarantor Name 06/30/2025 1 [facility] ([facility] [id number] Nick Erika [id number] [place] Notes Date Note Type Note Provider Name and Address Organization Details Recorded Time 06/30/20 25 text/ht ml Addiction F/UReported by PatientHPIFor [...] the past 2 weeks. 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 For aggravating [...] meets once weekly. Steps completed. 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 Counselor - Regi Wood, Appointment 5Client reported [...] last month. Living in an apartment in [place] and doing well. Anxiety 3/10 and depression 3/10 has decreased. He sated Wellbutrin has been effective. Still nauseated sick three times this week. Patient states he has had abdominal pain intermittently with nausea. Lipase 64.90 will refer for an Ultrasound of the Gallbladder at [facility] in [place]. Complaining of pain in elbows fredy, worse on the left, which has become chronic. He would like to go to PT, but needs to wait until financially more responsible. He plans to see a chiropractor. Dr. Mendez Complaining of a small abscess on the lateral side of upper chest. He will complete antibiotic today. Rosi Saucedo [address] [facility], [place], [address], [facility] - [facility], [facility] 06/30/2025 17:26:42
--- OUTSIDE RECORDS SUMMARY | 2025-07-09 15:46 | XMS_ITS | Continuity of Care Document ---
Author Organization [place] - [facility], [facility] Address [address] [place] [id number] Assessment Encounter Date Assessment Date Assessment LastModified by Organization Details LastModified Time 05/19/2025 05/19/2025 Patient presented for medication refill. Patient tolerating medication well at current dose without adverse effects. Refilled as below. Discussed plan with patient, who expressed understanding . Follow up as noted below. Not available 05/19/2025 16:54:49 Plan of Treatment Reminders Order Date Submit Date Provider Last Modified By Organization Details Last Modified Time Details Appointments ESTABLISH ED PATIENT 30 2024 04:30P Nelda PALMA NP Not available Not available Not available Lab testoster one, total, serum 2024 025 [facility], [address] [place] [address], [id number], 05/19/2025 17:05:54 drug screen, urine 2024 025 [facility], [address] [place] [address], [phone], 05/19/2025 17:05:53 drug screen, urine 2024 025 [facility], [address] [place] [address], [phone], 05/19/2025 17:05:53 Referral None recorded. Procedures None recorded. Surgeries None recorded. Imaging US, abdomen, complete 2024 025 [facility] ([facility]), [address], [place], [address], 05/26/2025 04:12:44 Medication Orders buprenorp astrid 8 mg-naloxo ne 2 mg sublingua l film 2024 025 [facility] 591, 805 [facility] [place], [place], [address], 06/23/2025 05:01:45 Patient TargetsNo targets recorded. Patient Instructions Encounter Date Encounter Id Patient Instructions Last Modified By Organization Details Last Modified Time 05/19/2025 [id number] Discussed the benefits and risks of treatment [...] over the past week. Steps completed. 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 Not available 05/19/2025 16:48:12 Reason for Referral None Reported. Results Created Date Observation Date Name Description Value Unit Range Abnormal Flag Note LastModifiedBy Organization Detail LastModifiedTime 05/05/2005/05/2025 drug scree n, urine Amphetamines : negati ve Not Available [facility], [facility] [address] [place], [address], 05/05/2025 16:01:23 05/05/20 25 05/05/2025 drug scree n, urine Cannabinoids : positi ve Not Available [facility], [address], [address], 05/05/2025 16:01:23 05/05/20 25 05/05/2025 drug scree n, urine Cocaine: negati ve Not Available [facility], [address], [address], 05/05/2025 16:01:23 05/05/20 25 05/05/2025 drug scree n, urine Opiates: negati ve Not Available [facility], [address], [address], 05/05/2025 16:01:23 05/05/20 25 05/05/2025 drug scree n, urine Oxycodone negati ve Not Available [facility], [address], [address], 05/05/2025 16:01:23 05/05/20 25 05/05/2025 drug scree n, urine Barbiturates : negati ve Not Available [facility], [address], [address], 05/05/2025 16:01:23 05/05/20 25 05/05/2025 drug scree n, urine Benzodiazepi edith: negati ve Not Available [facility], [address], [address], 05/05/2025 16:01:23 05/05/20 25 05/05/2025 drug scree n, urine Ethanol: negati ve Not Available [facility], [address], [address], 05/05/2025 16:01:23 05/05/20 25 05/05/2025 drug scree n, urine Fentanyl negati ve Not Available [facility], [address], [address], 05/05/2025 16:01:23 05/05/20 25 05/05/2025 drug scree n, urine Methadone negati ve Not Available [facility], [address], [address], 05/05/2025 16:01:23 05/05/20 25 05/05/2025 drug scree n, urine Buprenoprhin e positi ve Not Available [facility], [address], [address], 05/05/2025 16:01:23 05/05/20 25 05/05/2025 drug scree n, urine MDMA negati ve Not Available [facility], [address], [address], 05/05/2025 16:01:23 05/19/20 25 05/19/2025 drug scree n, urine Amphetamines : negati ve Not Available [facility], [address], [address], 05/19/2025 16:49:48 05/19/20 25 05/19/2025 drug scree n, urine Cannabinoids : positi ve Not Available [facility], [address], [address], 05/19/2025 16:49:48 05/19/20 25 05/19/2025 drug scree n, urine Cocaine: negati ve Not Available [facility], [address], [address], 05/19/2025 16:49:48 05/19/20 25 05/19/2025 drug scree n, urine Opiates: negati ve Not Available [facility], [address], [address], 05/19/2025 16:49:48 05/19/2005/19/2025 drug scree n, urine Oxycodone negati ve Not Available [facility], [address], [address], 05/19/2025 16:49:48 05/19/2005/19/2025 drug scree n, urine Barbiturates : negati ve Not Available [facility], [address], [address], 05/19/2025 16:49:48 05/19/2005/19/2025 drug scree n, urine Benzodiazepi edith: negati ve Not Available [facility], [address], [address], 05/19/2025 16:49:48 05/19/2005/19/2025 drug scree n, urine Ethanol: negati ve Not Available [facility], [address], [address], 05/19/2025 16:49:48 05/19/2005/19/2025 drug scree n, urine Fentanyl negati ve Not Available [facility], [address], [address], 05/19/2025 16:49:48 05/19/2005/19/2025 drug scree n, urine Methadone negati ve Not Available [facility], [address], [address], 05/19/2025 16:49:48 05/19/20 25 05/19/2025 drug scree n, urine Buprenoprhin e positi ve Not Available [facility], [address] [place], [address], 05/19/2025 16:49:48 05/19/2005/19/2025 drug scree n, urine MDMA negati ve Not Available [facility], [facility] [address] [place], [address], 05/19/2025 16:49:48 Result Notes None recorded. Problems Name Problem SNOMED Code Status Onset Date Resolution Date Notes Provider Name and Address Organization Details Recorded Time Long-term drug therapy Active 2019 Sintia Palma NP, A [address] [employer] [address], [place], [address], [facility] - [facility], [facility] 0 12:26:02 Health maintenance alteration 57567522 Active 2019 Sintia Palma NP, A [address], [place], [address], [facility] - [facility], [facility] 0 12:26:07 Medical examination for suspected condition Active 2019 Sintia Palma NP, A [address], [place], [address], [facility] - [facility], [facility] 0 14:29:00 Generalized anxiety disorder 16515396 Active 2020 Sintia Palma NP, A [address], [place], [address], [facility] - [facility], [facility] 1 13:57:46 Muscle spasm of cervical muscle of neck 687068597667 Active 2020 Sintia Palma NP, A [address], [place], [address], [facility] - [facility], [facility] 1 15:02:49 Pain of shoulder region 97269089 Active 2020 Sintia Palma NP, A [address], [place], [address], [facility] - [facility], [facility] 1 17:04:29 Pain in left foot 8181871056667 07 Active 2020 Sintia Palma NP, A [address], [place], [address], [facility], [facility] 1 16:16:30 Numbness of hand 614688599 Active 2020 Sintia Palma NP, A [address], [place], [address], [facility], [facility] 1 14:52:03 Unprotected sexual intercourse 3150089 Active 2020 Sintia Palma NP, A [address], [place], [address], [facility], [facility] 1 14:58:50 Chronic hepatitis C 918235700 Active 2020 Sintia Palma NP, A [address], [place], [address], [facility], [facility] 1 15:00:42 Neck pain 59542242 Active 2020 Sintia Palma NP, A [address], [place], [address], [facility], [facility] 5 17:33:27 Contact dermatitis 64754260 Active 2020 Sintia Palma NP, A [address], [place], [address], [facility], [facility] 1 16:27:11 Viral screening Active 2020 Sintia Palma NP, A [address], [place], [address], [facility], [facility] 1 16:29:05 Muscle tension pain 747239561 Active 2020 Sintia Palma NP, A [address], [place], [address], [facility], [facility] 1 16:31:15 Irregular heart beat 816168886 Active 2020 Sintia Palma NP, A [address], [place], [address], [place] [facility], [facility] 1 16:06:26 Low back pain 793056053 Active 2021 Sintia Palma NP, A [address], [place], [address], [place] [facility], [facility] 2 15:11:06 Otalgia 59708143 Active 2021 Sintia Palma NP, A [address], [place], [address], [place] [facility], [facility] 2 18:03:25 Muscle pain 49014631 Active 2021 Sintia Palma NP, A [address], [place], [address], [place] [facility], [facility] 2 17:45:14 Acute right otitis media 116397237 Active 2021 Sintia Palma NP, A [address], [place], [address], [place] [facility], [facility] 2 18:07:58 Benign essential hypertensio n 2587841 Active 2021 Sintia Palma NP, A [address], [place], [address], [place] [facility], [facility] 2 17:47:25 Excessive cerumen in ear canal 382939321 Active 2021 Sintia Palma NP, A [address], [place], [address], [place] [facility], [facility] 2 17:12:47 Infection of skin and/or subcutaneou s tissue 71542099 Active 2021 Sintia Palma NP, A [address], [place], [address], [place] [facility], [facility] 2 17:13:53 Fatigue 35792805 Active 2021 Sintia Palma NP, A [address], [place], [address], [facility], [facility] 2 17:18:07 Pruritic rash 25004662 Active 2022 Sintia Palma NP, A [address], [place], [address], [facility], [facility] 3 16:33:04 Tinea pedis 2890912 Active 2022 Sintia Palma NP, A [address], [place], [address], [facility], [facility] 3 16:35:38 Erectile dysfunction 290262507 Active 2022 Sintia Palma NP, A [address], [place], [address], [facility], [facility] 3 16:59:55 Dermatophyt osis 18363738 Active 2022 Sintia Palma NP, A [address], [place], [address], [facility], [facility] 3 16:48:08 Dysphagia 04879767 Active 2022 Sintia Palma NP, A [address], [place], [address], [facility], [facility] 3 15:11:54 Nausea 084323508 Active 2023 Sintia Palma NP, A [address], [place], [address], [facility], [facility] 5 18:03:43 Venereal disease screening Active 2023 Sintia Palma NP, A [address], [place], [address], [facility], [facility] 4 17:57:37 Screening for cardiovascu lar system disease Active 2023 Sintia Palma NP, A [address], [place], [address], [facility], [facility] 4 17:57:41 Gastroesoph ageal reflux disease 574833551 Active 2023 Sintia Palma NP, A [address], [place], [address], [place] [facility], [facility] 4 17:57:46 Renewal of prescriptio n Active 2023 Sintia Palma NP, A [address], [place], [address], [facility], [facility] 4 17:57:54 Pain of left shoulder joint 6509163695677 9109 Active 2023 Sintia Palma NP, A [address], [place], [address], [facility], [facility] 4 17:27:26 Pain of ear 992586589 Active 2023 Sintia Palma NP, A [address], [place], [address], [facility], [facility] 4 16:16:58 Seasonal allergy 842523662 Active 2023 Sintia Palma NP, A [address], [place], [address], [facility], [facility] 4 17:16:09 Constipatio n 53736008 Active 2023 Sintia Pamla NP, A [address], [place], [address], [facility], [facility] 4 16:46:28 Spasm 94418656 Active 2024 Sintia Palma NP, A [address], [place], [address], [facility], [facility] 5 16:10:06 Lack of energy 629831080 Active 2024 Sintia Palma NP, A [address], [place], [address], [facility], [facility] 5 17:39:20 Depressive disorder 94281310 Active 2024 Sintia Palma NP, A [address], [place], [address], [facility], [facility] 5 17:41:07 Acute abdominal pain 804893043 Active 2024 Sintia Palma NP, A [address], [place], [address], [facility], [facility] 5 17:30:29 Problem Notes None recorded. Procedures Surgical History Date Name Laterality Status Provider Name and Address Organization Details Recorded Time arthroscopy completed Sintia Palma NP, A [address], [place], [address], [facility], [facility] 08/24/2020 12:16:21 Imaging Results None [...] Available Not Available ketorolac 10 mg tablet 01/13 /2021 completed Not Available Not Available Not Available [...] cm 62 /min 95.7 [degF] 32.1 kg/m2 07926.1 6 g 98 % 98 % 146/84 mm[Hg] Barbie HERNANDEZ [facility] 5 16:44:20 Social History Question Answer Notes LastModified by Organizat ion Details LastModified Time Tobacco Smoking Status Current Every Day Smoker Sintia Palma NP, A [address] [place], [address], [facility] - [facility], [facility] 08/24/2020 12:14:17 Do You Have An Advance Directive? No Provided Copy Of [facility] Advance Directive [email or web address] Information not available 03/05/2023 What Is Your Level Of Caffeine Consumption? Moderate Information not available 10/14/2020 How Much Tobacco Do You Chew? None [email or web address] Information not available 10/14/2020 What Type Of Diet Are You Following? REGULAR [email or web address] Information not available 10/14/2020 Education 10 [email or web address] Information no t available 10/14/2020 Swimming/divi ng Yes Information not available 10/14/2020 Are There Any Guns Present In Your Home? No [email or web address] Information not available 10/14/2020 Hard Of Hearing Or Deaf In One Or Both Ears? No Information not available 10/14/2020 Legally Blind In One Or Both Eyes? No [email or web address] Information not available 10/14/2020 Live Alone Or With Others? With Others [email or web address] Information not available 10/14/2020 How Many Children Do You Have? 1 [email or web address] Information not available 10/14/2020 Seat Belts Used Routinely Yes [email or web address] Information not available 10/14/2020 Are You Sexually Active? No [email or web address] Information not available 10/14/2020 Smoke Alarm In Home Yes Information not available 10/14/2020 How Much Tobacco Do You Smoke? 0.25 PPD [email or web address] Information not available 10/14/2020 Do You Use Sunscreen Routinely? No [email or web address] Information not available 10/14/2020 How Many Years Have You Smoked Tobacco? 20 Information not available 09/26/2021 Sex: Unknown Functional Status Question Answer Note LastModified by Organizat ion Details LastModified Time What is your level of alcohol consumption? None [email or web address] Information not available 10/14/2020 Are you currently employed? Yes [email or web address] Information not available 10/14/2020 Are you able to care for yourself independently? 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 Moderate [email or web address] Information not available 10/14/2020 Mental Status None recorded. Family History Relationship Description Onset Age of this Age Resolved Age Notes LastModified by Organization Details LastModified Time Maternal Grandfather Myocardial infarction [email or web address] Not available 10/14 16:36:15 Maternal Grandfather Diabetes mellitus [email or web address] Not available 2020 16:36:45 Mother Diabetes mellitus [email or web address] Not available 2020 16:36:45 Mother Radial tunnel syndrome Not available 2020 16:37:11 Mother Hypertensive disorder Not available 2021 15:11:51 Mother Heart disease Not available 2023 17:30:42 Mother Lung mass [email or web address] Not availab le 02/12/2024 17:31:38 Brother Hypertensive disorder Not available 2021 15:11:30 Father Hypertensive disorder [email or web address] Not available 2021 15:11:41 Unspecified Relation Myocardial infarction [email or web address] Not available 02/11 17:31:05 Medical History Condition Response Liver Disease Y Muscle, Joint, or Bone Problems Y Mental Disorder Y Past Encounters Encounter ID Performer Location Encounter Start Date Encounter Closed Date Diagnosis/Indication Diagnosis SNOMED-CT Code Diagnosis ICD10 Code Diagnosis IMO Codes Diagnosis Note [id number] Sintia Palma NP, A [address] [address] 04/21/2025 16:09:35 04/21/2025 17:28:45 Renewal of prescription 748663277 Z76.0 Long-term drug therapy 722091442 Z79.899 Neck pain 85352064 M54.2 27448 Nausea 449287522 R11.0 [id number] Sintia Palma NP, A [address] [address] 05/05/2025 15:58:23 05/05/2025 18:09:33 Renewal of prescription 883579383 Z76.0 Long-term drug therapy 929436388 Z79.899 Nausea 010236737 R11.0 Constipation 46183723 K5 9.00 Lack of energy 044130637 R53.83 922041 Depressive disorder 3548 9007 F32.A 64184268 Abdominal pain 50297308 R10.9 85079470 [id number] Sintia Palma NP, A [facility], [address] [address] 05/19/2025 16:43:04 05/19/2025 17:31:19 Renewal of prescription 112404993 Z76.0 Long-term drug therapy 870739140 Z79.899 Nausea 999194855 R11.0 Lack of energy 100667211 R53.83 884544 Acute abdominal pain 116 456744 R10.9 66463 Health Concerns Section Related Observation LastModified by Organization Detai ls LastModified Time None Recorded Concern Status LastModified by Organization Details LastModified Time None Recorded Payers Encounter Date Sequence Insurance Name Policy Number Policy Woody Covered Member ID Woody Member ID Guarantor Name 05/19/2025 1 [place] [id number] Nick O'[place]on [id number] Nick O'Fallon Notes Date Note Type Note Provider Name and Address Organization Details Recorded Time 05/19/2025 text/html Addiction F/URep orted by PatientHPIFor associated symptoms, patient reportswithdrawal symptoms,depression, andanxietybut reportsno hallucinations,no paranoia,no insomnia, andgood appetite(anxiety 3/10; depression 3/10; restless, mild pain in legs). For quality, patient reportsdrug of choiceheroinandotheral cohol, benzodiazepines, thc. For severity, patient reportsuse since [...] twice over the past week. 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 For aggravating [...] and meets once weekly. Steps completed. 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 Counselor - Regi Wood, Appointment 5Client reported [...] old white male presents for refill on buprenorphine/naloxone . Patient states he is still having problems [...] on quitting Living in an apartment in [place] and doing well. Client reported lack of energy and nausea. He reported lack of energy and desire to participate in activities. He is concerned about testosterone level. Patient states he has had abdominal pain intermittently with nausea. Lipase 64.90 will refer for an Ultrasound of the Gallbladder at [facility] in [place]. Rosi Saucedo [address], [place], [address], [facility] - [facility], [facility] 05/19/2025 17:10:26
== END 2025-07-09 23:59 | disposition home or self-care (01) ==
LOC: RAD 15:41
PROVIDERS: Visit Provider Nurse Practitioner Family
DX: K82.8 Other specified diseases of gallbladder (principal); R10.9 Unspecified abdominal pain
CPT/HCPCS: 76700